=== PATIENT | male | born 1935 | race Caucasian/White ===

== ENCOUNTER 2017-12-05 06:22 | Emergency (ER) | payer MEDICARE, SELFPAY ==
[2017-12-05 06:31] VITALS: BP 157/89; PULSE 70; RESP 18; TEMP 36.7; O2SAT 99
--- NOTE | 2017-12-05 06:34 | DI.RAD.S_ITS ---
PROCEDURE: XR CHEST 1V INDICATIONS: chest pressure TECHNIQUE: One view of the chest was acquired. COMPARISON: [facility], CHEST 2 VIEW, 03/10/2016, 17:04. [facility], CHEST 1 VIEW, 08/04/2015, 9:12. FINDINGS: Surgical changes and devices: None. Lungs and pleura: No pleural effusions or pneumothorax. Lungs are clear. Mediastinum: Mediastinal contours appear normal. Heart size is normal. Bones and chest wall: No suspicious bony lesions. Overlying soft tissues appear unremarkable. IMPRESSION: Normal for age, source of current symptoms is not seen. Dictated by: Cem Askew M.D. on 12/05/2017 at 9:05 Approved by: Cem Askew M.D. on 12/05/2017 at 9:05
[2017-12-05] MEDS: ASPIRIN 81 MG TAB 324 MG PO (06:49)
[2017-12-05] MEDS: SODIUM CHLORIDE 0.9% 1,000 ML 150 ML IV (06:49)
[2017-12-05 06:51] LABS: Add Manual Diff / Slide Review NO; Basophils Percent Auto 0.5 % (0-2); Eosinophils Percent Auto 0.4 % (2-4); Hematocrit 42.6 % (41-53); Hemoglobin 14.5 g/dL (13.5-17.5); Lymphocytes Percent Auto 12.9 % (25-40); Mean Corpuscular Volume 96.9 fL (80-100); Monocytes Percent Auto 8.3 % (3-14); Neutrophils Absolute Auto 8900 /uL (3000-5900); Neutrophils Percent Auto 77.9 % (50-75); Platelet Count 183 X10^3/uL (150-400); Red Blood Cell Count 4.39 X10^6/uL (4.5-5.9); Red Cell Distribution Width 13.9 % (11.6-14.8); White Blood Cell Count 11.4 X10^3/uL (4.5-11.0)
[2017-12-05 07:00] LABS: Alanine Aminotransferase 31 IU/L (21-72); Albumin 4.5 g/dL (3.5-5.0); Albumin Globulin Ratio 1.5 (1.0-2.8); Alkaline Phosphatase 87 U/L (38-126); Aspartate Aminotransferase 37 IU/L (17-59); Bilirubin Total 1.3 mg/dL (0.2-1.3); Blood Urea Nitrogen 25 mg/dL (9-20); Calcium 9.3 mg/dL (8.4-10.2); Carbon Dioxide 32 mmol/L (22-32); Chloride 102 mmol/L (98-107); Creatine Kinase 300 U/L (55-170); Estimated Glomerular Filt Rate > 60.0 mL/min (>60); Glucose 113 mg/dL (80-110); HEMOLYSIS < 15 (0-50); Lipase 343 U/L (23-300); Sodium 143 mmol/L (137-145); Total Protein 7.5 g/dL (6.3-8.2)
[2017-12-05 07:11] LABS: Troponin I 0.021 ng/mL (0.01-0.034)
[2017-12-05 07:15] LABS: Creatine Kinase MB 2.87 ng/mL (<2.37)
--- NOTE | 2017-12-05 07:31 | ED.CHESTPAIN ---
HPI - Chest Pain General Chief Complaint: Chest Pain Stated Complaint: states, chest pain, high Blood Pressure Time Seen by Provider: 12/05/17 06:34 Source: patient and family Mode of arrival: ambulatory Limitations: no limitations History of Present Illness HPI narrative: Patient states that around midnight, he noticed substernal chest pain. The pain did not radiate, and was not accompanied by nausea, shortness of breath, diaphoresis, dizziness, or a sense of impending doom. He states that it was like pins and needles. Patient states that he did not think too much of it at the time and went back to sleep, but when he woke up, he noticed that the pain had spread to both sides of his chest. He states that the intensity is about the same as it was when it 1st started. Patient states it hurts more when he takes deep breath. He denies recent respiratory symptoms such as cough or mucus production. No fevers. Patient denies any calf pain. He states that otherwise he is feeling well. He states he has had several stress tests, but it has been many years ago. He states that his mother had a very small GA which was diagnosed on a preop EKG sometime after the fact. He states that otherwise, there are no heart problems in his family except for an uncle with AFib. Patient has hypertension and hyperlipidemia, but has never been a smoker, and is not a diabetic. No other complaints at this time. Severity: mild Severity scale (1-10): 3 Related Data Home Medications Medication Instructions Recorded Confirmed CA PANTOTHENATE/FOLIC ACID/VIT 1 tab PO QDAY #0 09/09/10 (MULTIVITAMIN) CALCIUM CITRATE (CITRACAL ) 200 mg PO QDAY #0 03/09/12 aspirin 81 mg PO QDAY #0 03/09/12 [omega ] PO BID #0 05/20/12 Previous Rx's Medication Instructions Recorded amoxicillin-pot clavulanate 500 mg PO Q12H #14 tab 03/09/16 [Augmentin] prednisone 0 PO QDAY #7 tab 03/09/16 doxycycline monohydrate 100 mg PO Q12H #20 cap 03/10/16 ondansetron HCl [Zofran] 4 mg PO Q6HP PRN #10 tab 03/10/16 tramadol 1 tab PO Q6HP PRN #10 tab 03/10/16 Allergies Allergy/AdvReac Type Severity Reaction Status Date / Time egg Allergy Unknown Unverified 12/05/17 06:31 lactose Allergy Unknown INTOLERANT Verified 12/05/17 06:31 Review of Systems Review of Systems All systems reviewed & are unremarkable except as noted in HPI and below Constitutional Denies chills, Denies fever(s), Denies lethargy and Denies weakness Eyes Denies change in vision, Denies eye discharge, Denies irritation and Denies loss of vision ENT Ears, Nose, Mouth, and Throat: Denies change in voice, Denies neck pain and Denies sore throat Cardiovascular Reports chest pain, Denies irregular heart rhythm, Denies lightheadedness, Denies palpitations, Denies dyspnea, Denies dyspnea on exertion and Denies orthopnea Respiratory Denies cough, Denies dyspnea, Denies dyspnea on exertion and Denies wheezing Gastrointestinal Gastrointestinal: Denies abdominal pain, Denies change in bowel habits, Denies diarrhea, Denies nausea and Denies vomiting Genitourinary Denies hematuria, Denies flank pain, Denies urinary incontinence and Denies urinary urgency Musculoskeletal Denies neck pain Integumentary/Breasts Denies pruritus, Denies erythema, Denies rash and Denies wounds Neurologic Denies confusion, Denies loss of vision and Denies weakness Psychiatric Denies anxiety, Denies confusion, Denies depression, Denies homicidal ideation and Denies suicidal ideation Endocrine Denies palpitations Hematologic/Lymphatic Denies easy bruising Allergic/Immunologic Denies wheezing [facility] Medical History Hyperlipidemia (Acute) Hypertension, essential (Acute) Surgical History Status post colonoscopy Family History Brother Parkinsons disease Social History Smoking Status: Never smoker Exam Initial Vital Signs Initial Vital Signs: Vital Signs Temperature 98.0 F 12/05/17 06:31 Pulse Rate 70 12/05/17 06:31 Respiratory Rate 18 12/05/17 06:31 Blood Pressure 157/89 H 12/05/17 06:31 Pulse Oximetry 99 12/05/17 06:31 Const General: cooperative and well developed Nutritional Appearance: well nourished Orientation: alert, awake, oriented x3 and not confused [facility] Head: normocephalic and atraumatic Ears: external ears normal Nose: external nose normal and No nasal discharge Face and sinus: face symmetric and No dry mucous membranes Mouth: oral mucosae normal and moist mucous membranes Teeth and gingiva: dentition normal Eyes General: appearance normal, both eyes and all related structures Eyelids: eyelids normal Conjunctivae: conjunctivae normal Sclera: sclerae normal Pupils: PERRL EOM: EOM intact bilaterally Neck Neck: normal visual inspection, trachea midline, No lymphadenopathy, No midline deformity and No JVD Lymphatic: No lymphedema Chest Chest: normal inspection of the chest Resp Effort & Inspection: normal respiratory effort, able to speak in complete sentences, no respiratory distress and no use of accessory muscles Auscultation: clear to auscultation bilaterally, no rales, no rhonchi and no wheezes Cardio Rate: regular rate Rhythm: regular rhythm Heart Sounds: no click, no gallops, no murmurs and no rubs Pulses: normal peripheral pulses GI Inspection: non-distended Palpation: soft, no hepatosplenomegaly, No guarding, No pulsatile mass and No tender Back/Spine/Pelvis Back: No CVA tenderness Cervical Spine: cervical ROM normal and No pain with cervical ROM Thoracic/Lumbar Spine: thoracic and lumbar spine normal to inspection Skin General: no rashes or lesions noted, No jaundice and No petechiae Neuro General: alert, oriented x3, gait normal and no focal motor deficits Speech: speech normal Extrem General: full ROM, no clubbing, cyanosis or edema, no pedal edema and no calf tenderness Psych Appearance: well kempt Mental Status: mental status grossly normal Attitude: cooperative Thought Content: normal and suicidality Judgment: judgment good Course Course Narrative: patient was evaluated by myself in the emergency department, and worked up with labs, EKG, and chest x-ray. Workup was unremarkable other than the EKG showing atrial flutter, which the patient had not previously been aware of, and a slightly elevated lipase, the significance of which is unclear. Patient's troponin and CK-MB index were both within normal limits. I did feel that, given the amount of time that had elapsed between the onset of chest pain and the patient's presentation to the emergency department, 1 set of cardiac enzymes was sufficient. Additionally, this patient has features more consistent with a chest wall source then with a visceral source, considering the change with deep breaths. As such, I felt patient was stable for discharge home. We have discussed the patient's a flutter, which patient has not previously been aware of. I have advised him to follow up with his primary care physician to discuss whether he needs to have another stress test done, or further evaluation for his atrial flutter. Orders Ordered: Discontinued Medications Aspirin (Aspirin Chew) 324 mg PO NOW ONE Stop: 12/05/17 06:35 Last Admin: 12/05/17 06:49 Dose: 324 mg Aspirin (Aspirin Chew) 324 mg PO NOW ONE Stop: 12/05/17 06:35 Last Admin: 12/05/17 06:49 Dose: Not Given Sodium Chloride (Normal Saline 0.9%) 1,000 mls @ 150 mls/hr IV CONT PANCHO Last Infusion: 12/05/17 09:21 Dose: 150 mls/hr Admin: 12/05/17 06:49 Dose: 150 mls/hr Vital Signs - 8 hr 12/05/17 06:31 Temperature 98.0 F Pulse Rate 70 Respiratory Rate 18 Blood Pressure 157/89 H Pulse Oximetry 99 MDM - Chest Pain Medical Records Data Attestation: I reviewed the patient's medical records. Lab Data Attestation: I reviewed the patient's lab results. Result diagrams: 12/05/17 06:30 12/05/17 06:30 Lab Results 12/05/17 12/05/17 Range/Units 06:30 06:30 WBC 11.4 H (4.5-11.0) X10^3/uL RBC 4.39 L (4.5-5.9) X10^6/uL Hgb 14.5 (13.5-17.5) g/dL Hct 42.6 (41-53) % MCV 96.9 (80-100) fL MCH 33.0 (26-34) PG MCHC 34.0 (30-36) % RDW 13.9 (11.6-14.8) % Plt Count 183 (150-400) X10^3/uL Neut % (Auto) 77.9 H (50-75) % Lymph % (Auto) 12.9 L (25-40) % [place] % (Auto) 8.3 (3-14) % Eos % (Auto) 0.4 L (2-4) % Baso % (Auto) 0.5 (0-2) % Neut # (Auto) 8900 H (3966-1696) /uL Sodium 143 (137-145) mmol/L Potassium 4.0 (3.4-5.1) mmol/L Chloride 102 (98-107) mmol/L Carbon Dioxide 32 (22-32) mmol/L BUN 25 H (9-20) mg/dL Creatinine 1.00 (0.66-1.25) mg/dL Estimated GFR > 60.0 (>60) mL/min BUN/Creatinine Ratio 25.0 H (6-22) Glucose 113 H (80-110) mg/dL Calcium 9.3 (8.4-10.2) mg/dL Total Bilirubin 1.3 (0.2-1.3) mg/dL AST 37 (17-59) IU/L ALT 31 (21-72) IU/L Alkaline Phosphatase 87 (38-126) U/L Total Creatine Kinase 300 H (55-170) U/L CK-MB (CK-2) 2.87 H (<2.37) ng/mL CK-MB (CK-2) Rel Index 1.0 L (1.5-5.0) % Troponin I 0.021 (0.01-0.034) ng/mL Total Protein 7.5 (6.3-8.2) g/dL Albumin 4.5 (3.5-5.0) g/dL Globulin 3.0 (1.7-4.1) g/dL Albumin/Globulin Ratio 1.5 (1.0-2.8) Lipase 343 H (23-300) U/L Urine Dip Bedside Urine Glucose Negative Bedside Urine Bilirubin - Negative Bedside Urine Ketone - Negative Urine Specific [place] 1.010 Bedside Urine Occult Blood - Negative Bedside Urine pH 7.5 Bedside Urine Protein - Negative Bedside Urine Urobilinogen - Negative Bedside Urine Nitrite - Negative Bedside Urine Leukocytes - Negative Esterase Imaging Data Chest x-ray: Attestation: I personally reviewed and interpreted this imaging study as follows: My impression: Negative Radiologist's impression: PROCEDURE: XR CHEST 1V INDICATIONS: chest pressure TECHNIQUE: One view of the chest was acquired. COMPARISON: [facility], , CHEST 2 VIEW, 03/10/2016, 17:04. [facility], , CHEST 1 VIEW, 08/04/2015, 9:12. FINDINGS: Surgical changes and devices: None. Lungs and pleura: No pleural effusions or pneumothorax. Lungs are clear. Mediastinum: Mediastinal contours appear normal. Heart size is normal. Bones and chest wall: No suspicious bony lesions. Overlying soft tissues appear unremarkable. IMPRESSION: Normal for age, source of current symptoms is not seen. Dictated by: Cem Askew M.D. on 12/05/2017 at 9:05 Approved by: Cem Askew M.D. on 12/05/2017 at 9:05 ECG Data Attestation: I personally reviewed and interpreted this ECG as follows: Interpretation: Twelve lead EKG performed on December 05, 2017 at 6:29 a.m.: Regular ventricular rhythm with a rate of 94 beats per minute Saw tooth baseline noted, without distinct P-waves QRS duration 88 milliseconds QTC interval 418 milliseconds Summary: Atrial flutter with normal rate; no STEMI as interpreted by ED MD. Discharge Plan Departure Patient Disposition: Home Clinical Impression: Chest pain, Atrial flutter Discharge Date/Time: 12/05/17 09:37 Interventions: ED Discharge Assessment Last Done: 12/05/17 09:35 Instructions: DI for Atrial Flutter, DI for Chest Pain Activity Restrictions/Additional Instructions: Your labs showed no evidence of a heart attack. Your chest x-ray looks good. Your EKG shows a mild rhythm abnormality (atrial flutter--see instructions) but otherwise looks great. Please follow-up with your primary doctor regarding the chest pain and the new diagnosis of atrial flutter. Prescriptions: No Action CA PANTOTHENATE/FOLIC ACID/VIT (MULTIVITAMIN) 1 tab PO QDAY Qty: 0 RF: 0 aspirin 81 MG tablet,delayed release (DR/EC) 81 mg PO QDAY Qty: 0 RF: 0 CALCIUM CITRATE (CITRACAL ) 200 mg PO QDAY Qty: 0 RF: 0 [omega ] PO BID Qty: 0 RF: 0 prednisone 20 MG tablet PO QDAY Qty: 7 RF: 0 amoxicillin-pot clavulanate [Augmentin] 500 MG/125 MG tablet 500 mg PO Q12H Qty: 14 RF: 0 ondansetron HCl [Zofran] 4 MG tablet 4 mg PO Q6HP PRNQty: 10 RF: 0 tramadol 50 MG tablet 1 tab PO Q6HP PRNQty: 10 RF: 0 doxycycline monohydrate 100 MG capsule 100 mg PO Q12H Qty: 20 RF: 0 Referrals: Delon Judd MD [Primary Care Provider] -
[2017-12-05 09:35] VITALS: BP 129/80; PULSE 78; RESP 24; O2SAT 96
== END 2017-12-05 09:37 | disposition home or self-care (01) ==
PROVIDERS: Emergency Medicine; Emergency Provider Emergency Medicine; PCP Family Medicine
DX: I48.92 Unspecified atrial flutter (principal); R07.89 Other chest pain
CPT/HCPCS: 36591; 71045; 80053; 81003; 82550; 82553; 83690; 84484; 85025; 93005; 96360; 96361; 99283; 99285

== ENCOUNTER → 2017-12-10 08:21 | Outpatient (CLI) | payer MEDICARE, SELFPAY ==
--- NOTE | 2017-12-10 | DI.ECHO.S_ITS ---
[facility]---------+ [facility] +---------+ : : [address] : : : : [id number] : : : : Phone: [phone] Echocardiogram Report + + :Name: JUAN CARLOS MI Study Date: 12/10/2017 Height: 72 in : :[facility] Weight: 200 lb : : Gender: Male BSA: 2.1 m2 : :: 1935 Age: 82 yrs BP: 130/84 mmHg: :Reason For Study: Atrial fibrillation : : Performed By: Monique Melendez : :Referring: DOMINGUEZ MARTINEZ : + + Interpretation Summary The ejection fraction is estimated to be 60-65%. There is mild tricuspid regurgitation. The right ventricular systolic pressure is estimated to be at least 29 mmHg based on an estimated right atrial pressure of 3 mm Hg. Procedure: A two-dimensional transthoracic echocardiogram with color flow and Doppler was performed. The study quality was technically adequate. There is no prior echocardiogram noted for this patient. The patient was in atrial fibrillation with heart rates between 75-89 bpm during the exam. Left Ventricle: The left ventricle is normal in size, wall thickness, and systolic function without any focal wall motion abnormalities. The ejection fraction is estimated to be 60-65%. Left ventricular wall motion is normal. Diastolic function could not be accurately assessed due to atrial fibrillation. Right Ventricle: The right ventricle grossly appears normal in size with probable normal systolic function. Atria: The left atrium is mildly dilated. Right atrial size is normal. The interatrial septum is intact with no evidence for an atrial septal defect. Mitral Valve: The mitral valve is grossly normal. There is trace mitral regurgitation. Aortic Valve: The aortic valve is trileaflet. The aortic valve is mildly calcified. The aortic valve opens well. No aortic regurgitation is present. Tricuspid Valve: The tricuspid valve leaflets are thin and pliable. There is mild tricuspid regurgitation. The right ventricular systolic pressure is estimated to be at least 29 mmHg based on an estimated right atrial pressure of 3 mm Hg. Pulmonic Valve: The pulmonic valve is not well seen, but is grossly normal. There is mild pulmonic regurgitation. Great Vessels: The aortic root is mildly dilated. The ascending aorta is mildly enlarged. The aortic arch is normal in size. The IVC is of normal diameter and collapses greater than 50% with a sniff. This suggests a low right atrial pressure of 3 mm Hg. Pericardium/ Pleura There is no pericardial effusion. There is no pleural effusion. MMode/2D Measurements & Calculations LVIDd: 4.1 cm Ao root diam: 3.9 cm LVIDs: 2.3 cm Aortic Jxn: 3.1 cm FS: 43.4 % asc Aorta Diam: 3.8 cm EPSS: 0.34 cm Ao Arch Diam (Prox Trans): 2.6 cm IVSd: 0.75 cm LVPWd: 0.81 cm LV underwood. diameter/BSA (cm/m^2): 1.9 LV sys. diameter/BSA (cm/m^2): 1.1 LA dimension: 3.9 cm RA long axis: 4.6 cm LA A2 area: 26.4 cm2 RA area: 19.8 cm2 LA A4 area: 23.3 cm2 RA vol: 73.0 ml LA length (vol): 6.1 cm RA : 34.3 ml/m2 LA vol: 86.1 ml IVC diam: 1.6 cm LA vol index: 40.4 ml/m2 RVDd major: 5.3 cm RVD1 (basal): 3.6 cm RVD2 (mid): 2.6 cm Doppler Measurements & Calculations Ao V2 max: 146.9 cm/sec Med Peak E' Jose: 7.1 cm/sec Ao V2 mean: 101.2 cm/sec Lat Peak E' Jose: 9.5 cm/sec Ao max P.6 mmHg MV P1/2t: 77.3 msec Ao mean P.6 mmHg Ao V2 VTI: 27.5 cm TR max jose: 252.3 cm/sec MV V2 mean: 46.1 cm/sec TR max P.5 mmHg MV mean P.3 mmHg PA V2 max: 72.4 cm/sec MV V2 VTI: 17.9 cm PA V2 mean: 44.6 cm/sec PA mean P.96 mmHg PA Accel Time: 0.11 sec MV P1/2t max jose: 97.4 cm/sec MVA(P1/2t): 2.8 cm2 Reading Physician:04:19 PM
== END ==
PROVIDERS: PCP Family Medicine; Visit Provider Family Medicine
DX: I07.1 Rheumatic tricuspid insufficiency (principal); I48.91 Unspecified atrial fibrillation
CPT/HCPCS: 93306

== ENCOUNTER → 2018-02-04 08:24 | Outpatient (CLI) | payer MEDICARE, SELFPAY ==
--- NOTE | 2018-02-04 09:23 | P.PCN_ITS ---
Cardiac Stress Test Report Referral & Results Date Patient Seen: 02/04/18 Requesting provider: Miranda Dejesus Indication: Atrial fibrillation Rest ECG: Atrial fibrillation with controlled ventricular response Procedure Note: Today following both written and verbal informed consent the patient was exercised according to a standard Shaquille protocol patient went for a total of 6 min 0 sec achieving a maximum heart rate of 160 maximum systolic blood pressure of 180. This is approximately 7.0 METS. Exercise was terminated at this point because of inability the patient to continue because of fatigue and weakness. Patient was also given Cardiolite through a previously started Hep-Lock IV by the nuclear waste management engineer approximately 1 minute prior to the cessation of exercise. Patient was rapidly tachycardic. Blood pressure was somewhat slow to respond but ultimately peak blood pressure was normal. Functional aerobic impairment rated-10% on the active scale so better than average No ST-T segment changes identified Rare PVCs including ventricular couplets were identified Impression: No evidence of ischemia based on usually ECG criteria Ventricular dysrhythmias as above Excellent exercise capacity Perfusion imaging will be reported separately Please note: Actual ECG tracings can be found in the PACS system.
--- NOTE | 2018-02-06 14:35 | DI.NM.S_ITS ---
DATE OF SERVICE: 02/04/2018 PROCEDURE: Pharmacological perfusion study. INDICATION: Persistent atrial fibrillation with underlying hypertension, hyperlipidemia. RADIOPHARMACEUTICAL: 24.5 mCi technetium-99m Myoview IV was injected at stress, and 26.9 mCi technetium-99m Myoview IV was injected at rest. CARDIAC STRESS: Patient underwent exercise perfusion study under the supervision of an attending staff. He walked on Shaquille protocol for 6 minutes 1 second and achieved 114% of target heart rate with normal blood pressure response. There was enhanced chronotropic response. Functional aerobic impairment -10%. Achieved 7 METs of workload. Baseline rhythm was atrial fibrillation with controlled ventricular rate. During stress, there was enhanced chronotropic response. Patient remained in atrial fibrillation. There were no obvious new ischemic changes. Occasional PVCs and ventricular couplets. No ventricular tachycardia. Patient felt fatigued. RAW DATA: There was adequate myocardial uptake. GATED STUDY: Resting LV ejection fraction 74% and stress LV ejection fraction 76%. No obvious wall motion abnormalities. Resting end-diastolic volume 78 mL. Lung/heart ratio 0.35, which is within normal limits. No transient ischemic dilatation. TID ratio is 0.98, which is within normal limits. MYOCARDIAL PERFUSION SCAN: Stress supine, resting supine, and stress prone images were compared to each other. Resting supine images revealed a small- sized, minimally decreased perfusion of inferior wall which got resolved during stress prone as well as stress supine images. I don't see any convincing ischemia infarction pattern. CONCLUSION: 1. I will call this study a normal myocardial perfusion study. No convincing ischemia infarction during stress supine and stress prone images. LV function is preserved. No transient ischemic dilatation. Patient has atrial fibrillation. During exercise, there was enhanced chronotropic response, and maximum heart rate went up to 160 beats per minute. Patient will benefit with better rate control. As far as perfusion scan is concerned, this is a low-risk myocardial infarction scan. Arlette Catracho - EFFICIENCY MINER/fn/kv doc#: [id number]/job#: [id number] dd: 02/06/2018 12:45:00 dt: 02/06/2018 14:25:00 DICTATING MD/COPIES TO: Jonathan Mojica MD COPIES MNE: PALJay Jay
== END ==
PROVIDERS: PCP Family Medicine; Visit Provider Internal Medicine Cardiovascular Disease
DX: I48.1 Persistent atrial fibrillation (principal); I49.3 Ventricular premature depolarization
CPT/HCPCS: 78452; 93016; 93017; 93018; A9502

== ENCOUNTER → 2018-06-10 07:44 | Outpatient (CLI) | payer MEDICARE, SELFPAY ==
[2018-06-10 08:41] LABS: Add Manual Diff / Slide Review NO; Basophils Absolute Auto 0 /uL (0-100); Basophils Percent Auto 0.6 % (0-2); Eosinophils Absolute Auto 100 /uL (0-450); Eosinophils Percent Auto 1.5 % (2-4); Hematocrit 43.2 % (41-53); Hemoglobin 14.2 g/dL (13.5-17.5); Lymphocytes Absolute Auto 2400 /uL (1100-4500); Lymphocytes Percent Auto 32.9 % (25-40); Mean Corpuscular Hemoglobin 32.6 PG (26-34); Mean Corpuscular Volume 98.9 fL (80-100); Monocytes Absolute Auto 500 /uL (0-900); Neutrophils Absolute Auto 4300 /uL (1500-7000); Platelet Count 171 X10^3/uL (150-400); Red Blood Cell Count 4.37 X10^6/uL (4.5-5.9); Red Cell Distribution Width 13.7 % (11.6-14.8); White Blood Cell Count 7.4 X10^3/uL (4.5-11.0)
[2018-06-10 09:28] LABS: Blood Urea Nitrogen 29 mg/dL (9-20); Calcium 9.1 mg/dL (8.4-10.2); Carbon Dioxide 31 mmol/L (22-32); Chloride 101 mmol/L (98-107); Cholesterol 124 mg/dL (140-199); Estimated Glomerular Filt Rate > 60.0 mL/min (>60); Glucose 95 mg/dL (80-110); HDL Cholesterol 39 mg/dL (40-60); HEMOLYSIS < 15 (0-50); LDL Cholesterol Calculated 69 mg/dL (<100); Potassium 4.4 mmol/L (3.4-5.1); Sodium 141 mmol/L (137-145); Triglycerides 82 mg/dL (35-150)
== END ==
PROVIDERS: Family Provider Family Medicine; PCP Family Medicine; Visit Provider Internal Medicine Cardiovascular Disease
DX: E78.5 Hyperlipidemia, unspecified (principal); I10 Essential (primary) hypertension; I48.1 Persistent atrial fibrillation
CPT/HCPCS: 36415; 80048; 80061; 85025

== ENCOUNTER 2018-08-09 04:53 | Emergency (ER) | payer MEDICARE, SELFPAY ==
--- NOTE | 2018-08-09 05:02 | ED.EPISTAXIS ---
HPI - Epistaxis General Chief complaint: Nasal Problem Stated complaint: nose bleeding x1 hour no injury Time Seen by Provider: 08/09/18 05:02 Source: patient Mode of arrival: ambulatory Limitations: no limitations History of Present Illness HPI Narrative: Patient is an 82-year-old male on Eliquis for atrial fibrillation here for evaluation of a nosebleed. Patient states that it started approximately 1 hour ago. No trauma. Related Data Home Medications Medication Instructions Recorded Confirmed CA PANTOTHENATE/FOLIC ACID/VIT 1 tab PO QDAY #0 09/09/10 03/13/18 (MULTIVITAMIN) CALCIUM CITRATE (CITRACAL ) 200 mg PO QDAY #0 03/09/12 03/13/18 aspirin 81 mg PO QDAY #0 03/09/12 03/13/18 [omega ] PO BID #0 05/20/12 03/13/18 apixaban 5 mg tablet 5 mg PO BID 03/13/18 03/13/18 duloxetine 30 mg capsule,delayed 30 mg PO DAILY 03/13/18 03/13/18 release lisinopril 20 mg tablet 20 mg PO DAILY 03/13/18 03/13/18 omeprazole 20 mg capsule,delayed 20 mg PO DAILY 03/13/18 03/13/18 release simvastatin 20 mg/5 mL (4 mg/mL) 20 mg PO BEDTIME 03/13/18 03/13/18 oral suspension Previous Rx's Medication Instructions Recorded amoxicillin-pot clavulanate 500 mg PO Q12H #14 tab 03/09/16 [Augmentin] prednisone 0 PO QDAY #7 tab 03/09/16 doxycycline monohydrate 100 mg PO Q12H #20 cap 03/10/16 ondansetron HCl [Zofran] 4 mg PO Q6HP PRN #10 tab 03/10/16 tramadol 1 tab PO Q6HP PRN #10 tab 03/10/16 Allergies Allergy/AdvReac Type Severity Reaction Status Date / Time egg Allergy Unknown Unverified 03/13/18 14:38 lactose Allergy Unknown INTOLERANT Verified 03/13/18 14:38 Review of Systems Constitutional Denies fever(s) ENT Ears, Nose, Mouth, and Throat: Reports epistaxis Cardiovascular Denies chest pain and Denies dyspnea Respiratory Denies dyspnea Integumentary/Breasts Denies rash Hematologic/Lymphatic Comments: On Eliquis [facility] Medical History Hyperlipidemia (Acute) Hypertension, essential (Acute) Social History Smoking Status: Never smoker Exam Initial Vital Signs Initial Vital Signs: Vital Signs Temperature 97.5 F L 08/09/18 05:10 Pulse Rate 68 08/09/18 05:10 Respiratory Rate 18 08/09/18 05:10 Blood Pressure 190/107 H 08/09/18 05:10 Pulse Oximetry 97 08/09/18 05:10 Const General: cooperative, well developed, well groomed and No acute distress Orientation: alert, awake and oriented x3 HENMT Head: normal to inspection and normocephalic Nose: external nose normal, nares normal, septum normal, No epistaxis, external nose abnormal, No nasal discharge and No septum abnormal Face and sinus: normal facial exam Resp Effort & Inspection: normal respiratory effort Skin Lesions: no lesions Rashes: no rashes Neuro General: alert, awake and oriented x3 Cognition: normal cognition Speech: speech normal Extrem General: normal to inspection and capillary refill normal Course Vital Signs - 8 hr 08/09/18 05:10 Temperature 97.5 F L Pulse Rate 68 Respiratory Rate 18 Blood Pressure 190/107 H Pulse Oximetry 97 MDM - Epistaxis MDM Narrative Medical decision making narrative: Patient was observed here in the emergency department for approximately 30 minutes without any bleeding and without any compression. We did discuss return precautions. We did discuss what he could do at home to try to try at home to help with symptoms. Patient expressed understanding and agreement with plan. Discharge Plan Departure Patient Disposition: Home Clinical Impression: Epistaxis Instructions: DI for Nosebleed Activity Restrictions/Additional Instructions: Recommend you continue all of your medication as directed. If your nose starts to bleed at home treat it like we discussed. If the bleeding persists please return to the emergency department for further evaluation. Prescriptions: No Action CA PANTOTHENATE/FOLIC ACID/VIT (MULTIVITAMIN) 1 tab PO QDAY Qty: 0 RF: 0 aspirin 81 MG tablet,delayed release (DR/EC) 81 mg PO QDAY Qty: 0 RF: 0 CALCIUM CITRATE (CITRACAL ) 200 mg PO QDAY Qty: 0 RF: 0 [omega ] PO BID Qty: 0 RF: 0 prednisone 20 MG tablet PO QDAY Qty: 7 RF: 0 amoxicillin-pot clavulanate [Augmentin] 500 MG/125 MG tablet 500 mg PO Q12H Qty: 14 RF: 0 ondansetron HCl [Zofran] 4 MG tablet 4 mg PO Q6HP PRNQty: 10 RF: 0 tramadol 50 MG tablet 1 tab PO Q6HP PRNQty: 10 RF: 0 doxycycline monohydrate 100 MG capsule 100 mg PO Q12H Qty: 20 RF: 0 duloxetine 30 mg capsule,delayed release(DR/EC) 30 mg PO DAILY RF: 0 simvastatin 20 mg/5 mL (4 mg/mL) suspension 20 mg PO BEDTIME RF: 0 lisinopril 20 mg tablet 20 mg PO DAILY RF: 0 apixaban [Eliquis] 5 mg tablet 5 mg PO BID RF: 0 omeprazole 20 mg capsule,delayed release(DR/EC) 20 mg PO DAILY RF: 0 Referrals: Delon Judd MD [Primary Care Provider] -
[2018-08-09 05:10] VITALS: BP 190/107; PULSE 68; RESP 18; TEMP 36.4; O2SAT 97; BMI 25.7
--- NOTE | 2018-08-09 05:14 | PC.NURSE ---
He awoke with left nare nosebleed.He applied pressure to nasal arch and his nose bleed has stopped,no bleeding noted in back of throat.Some dried blood on left nare.
[2018-08-09 05:48] VITALS: BP 160/90; PULSE 64; RESP 18; O2SAT 98
== END 2018-08-09 05:49 | disposition home or self-care (01) ==
PROVIDERS: Emergency Provider Emergency Medicine; Family Provider Family Medicine; PCP Family Medicine
DX: R04.0 Epistaxis (principal)
CPT/HCPCS: 99282

== ENCOUNTER → 2018-08-15 10:21 | Outpatient (ROUT) | payer MEDICARE, SELFPAY ==
[2018-08-15 10:28] LABS: Add Manual Diff / Slide Review NO; Basophils Absolute Auto 0 /uL (0-100); Basophils Percent Auto 0.5 % (0-2); Eosinophils Absolute Auto 100 /uL (0-450); Hematocrit 42.8 % (41-53); Hemoglobin 14.5 g/dL (13.5-17.5); Lymphocytes Absolute Auto 2000 /uL (1100-4500); Lymphocytes Percent Auto 27.1 % (25-40); Mean Corpuscular Hemoglobin 33.7 PG (26-34); Monocytes Absolute Auto 500 /uL (0-900); Monocytes Percent Auto 7.2 % (3-14); Neutrophils Absolute Auto 4700 /uL (1500-7000); Neutrophils Percent Auto 64.2 % (50-75); Platelet Count 175 X10^3/uL (150-400); Red Blood Cell Count 4.32 X10^6/uL (4.5-5.9); Red Cell Distribution Width 13.8 % (11.6-14.8); White Blood Cell Count 7.4 X10^3/uL (4.5-11.0)
[2018-08-15 10:35] LABS: INR 1.2 (0.9-1.3); Prothrombin Time 14.3 SECONDS (10.1-12.7)
[2018-08-15 10:41] LABS: Blood Urea Nitrogen 27 mg/dL (9-20); Calcium 9.2 mg/dL (8.4-10.2); Carbon Dioxide 31 mmol/L (22-32); Chloride 104 mmol/L (98-107); Estimated Glomerular Filt Rate > 60.0 mL/min (>60); Glucose 106 mg/dL (80-110); HEMOLYSIS < 15 (0-50); Potassium 4.1 mmol/L (3.4-5.1); Sodium 141 mmol/L (137-145)
== END ==
PROVIDERS: Family Provider Family Medicine; PCP Family Medicine; Visit Provider Family Medicine
DX: Z79.01 Long term (current) use of anticoagulants (principal); R04.0 Epistaxis
CPT/HCPCS: 80048; 85025; 85610

== ENCOUNTER → 2019-06-11 09:40 | Outpatient (CLI) | payer MEDICARE, SELFPAY ==
[2019-06-11 10:39] LABS: Add Manual Diff / Slide Review NO; Basophils Absolute Auto 0 /uL (0-100); Basophils Percent Auto 0.6 % (0-2); Eosinophils Absolute Auto 100 /uL (0-450); Eosinophils Percent Auto 1.8 % (2-4); Hematocrit 44.6 % (41-53); Lymphocytes Absolute Auto 2300 /uL (1100-4500); Lymphocytes Percent Auto 33.7 % (25-40); Mean Corpuscular HGB Conc 33.6 % (30-36); Mean Corpuscular Hemoglobin 33.7 PG (26-34); Mean Corpuscular Volume 100.2 fL (80-100); Monocytes Absolute Auto 500 /uL (0-900); Monocytes Percent Auto 7.6 % (3-14); Neutrophils Absolute Auto 3900 /uL (1500-7000); Neutrophils Percent Auto 56.3 % (50-75); Platelet Count 183 X10^3/uL (150-400); Red Blood Cell Count 4.45 X10^6/uL (4.5-5.9); Red Cell Distribution Width 13.2 % (11.6-14.8); White Blood Cell Count 6.9 X10^3/uL (4.5-11.0)
[2019-06-11 11:17] LABS: BUN Creatinine Ratio 21.5 (6-22); Blood Urea Nitrogen 23 mg/dL (9-20); Calcium 9.4 mg/dL (8.4-10.2); Carbon Dioxide 32 mmol/L (22-32); Chloride 102 mmol/L (98-107); Estimated Glomerular Filt Rate > 60.0 mL/min (>60); Glucose 95 mg/dL (80-110); HEMOLYSIS < 15 (0-50); Potassium 4.4 mmol/L (3.4-5.1); Sodium 140 mmol/L (137-145)
== END ==
PROVIDERS: Family Provider Family Medicine; PCP Family Medicine; Referring Provider Internal Medicine Cardiovascular Disease; Visit Provider Internal Medicine Cardiovascular Disease
DX: I10 Essential (primary) hypertension (principal); Z79.01 Long term (current) use of anticoagulants
CPT/HCPCS: 36415; 80048; 85025

== ENCOUNTER 2019-07-06 12:41 | Emergency (ER) | payer MEDICARE, SELFPAY ==
[2019-07-06 12:49] VITALS: BP 162/109; PULSE 82; RESP 12; TEMP 36.4; O2SAT 97; BMI 25.7
--- NOTE | 2019-07-06 12:51 | ED_ITS ---
HPI - Epistaxis General Chief complaint: Nasal Problem Stated complaint: nose bleed for a couple hours now wont stop Time Seen by Provider: 07/06/19 12:49 Source: patient and family () Mode of arrival: Ambulatory Limitations: no limitations History of Present Illness HPI Narrative: This is an 83-year-old male who comes to the emergency department with complaint of nose bleed. Patient states he has had almost 3 hours of symptoms. He states that he did have an episode in the past. This was shortly after he had started Eliquis. He states that he does use a CPAP at night but he increased his humidity after having epistaxis in the past and he did have his metoprolol stopped recently by his remote broadcast technician because his heart rate was little low. So he believes his blood pressure may be high. He states is from the left side of the nose. They were able to stop it last time he was in the emergency department he did follow-up with ENT and there was 1 small area they thought was causing the bleeding that they did cauterize. He has not had any issues since then. He denies any lightheadedness, no pain, he has some mild rapid down the back of his throat but does not feel nauseated. He denies any chest pain or shortness of breath or other symptoms. He has not had any other medication changes. He had a nasal clamp at that he left on for about half an hour and when removed continued to have some bleeding. Related Data Home Medications Medication Instructions Recorded Confirmed CA PANTOTHENATE/FOLIC ACID/VIT 1 tab PO QDAY #0 09/09/10 09/11/18 (MULTIVITAMIN) [omega ] PO BID #0 05/20/12 09/11/18 apixaban 5 mg tablet 5 mg PO BID 03/13/18 07/06/19 duloxetine 30 mg capsule,delayed 30 mg PO DAILY 03/13/18 07/06/19 release lisinopril 20 mg tablet 20 mg PO DAILY 03/13/18 07/06/19 simvastatin 20 mg/5 mL (4 mg/mL) 20 mg PO BEDTIME 03/13/18 07/06/19 oral suspension apixaban 5 mg tablet 5 mg PO BID 09/11/18 09/11/18 Allergies Allergy/AdvReac Type Severity Reaction Status Date / Time egg Allergy Unknown Unverified 07/06/19 12:51 lactose Allergy Unknown INTOLERANT Verified 07/06/19 12:51 Review of Systems Review of Systems ROS Unobtainable: All systems reviewed & are unremarkable except as noted in HPI and below Patient History Medical History Atrial fibrillation and flutter (Acute) Epistaxis, recurrent (Acute) Fatigue (Chronic) Hyperlipidemia (Chronic) Hypertension, essential (Chronic) Neuropathy, peripheral (Chronic) Obstructive sleep apnea of adult (Chronic) Surgical History Status post colonoscopy (Resolved) Social History Smoking Status: Never smoker Smoking Status: Never smoker alcohol intake frequency: 0-2 drinks per day Substance Use Type: does not use Exam Narrative Exam Narrative: GEN: well nourished, well appearing male, alert and oriented x 3, patient appears to be in mild distress. HEENT: Atraumatic, pupils are equal round reactive to light, extraocular movements are intact, right nares clear left Frias has a small point on the septum that appears to have been bleeding although there is also an area the little larger on the outer inside there that may potentially be a source, there is no active bleeding at this time, TMs are clear with no fluid. Throat is clear without any exudates, erythema, tonsillar enlargement or uvular deviation HEART: Regular rate and rhythm without murmur, clicks, rubs. LUNGS:Lungs clear to auscultation, no wheezes, rales, crackles, chest moves symmetrically ABD:bowel sounds normal, soft, non-tender, no guarding, rebound, rigidity, no masses noted, no hepatosplenomegaly MSCL: Non-tender, no muscle atrophy, muscles strength 5/5 upper and lower extremities, full range of motion, normal gait NEURO:CN 2-12 intact, sensation normal. SKIN: Initial Vital Signs Initial Vital Signs: Vital Signs Temperature 97.5 F L 07/06/19 12:49 Pulse Rate 82 07/06/19 12:49 Respiratory Rate 12 07/06/19 12:49 Blood Pressure 162/109 H 07/06/19 12:49 Pulse Oximetry 97 07/06/19 12:49 Procedures Epistaxis Control Time Out Performed: Yes Nostril: left Nose Prepped With: lidocaine and oxymetazoline Direct Inspection: yes and unable to visualize Course Orders Ordered: Discontinued Medications Lidocaine/Sodium Bicarbonate (Buffered Lidocaine 10 Ml Syr) 10 ml INJ NOW ONE Stop: 07/06/19 12:54 Oxymetazoline HCl (Afrin) 1 sprays NASAL NOW ONE Stop: 07/06/19 12:54 Silver Nitrate/Potassium Nitrate (Silver Nitrate Stick) 1 each TOP NOW ONE Stop: 07/06/19 13:02 Last Admin: 07/06/19 14:05 Dose: Not Given Documented by: MEISENAzalia Tranexamic Acid (Cyklokapron) 500 mg MM NOW ONE Stop: 07/06/19 12:54 Last Admin: 07/06/19 14:04 Dose: Not Given Documented by: MERRICK Vital Signs Vital signs: Vital Signs - 8 hr 07/06/19 12:49 07/06/19 13:54 Temperature 97.5 F L Pulse Rate 82 71 Respiratory Rate 12 Blood Pressure 162/109 H Blood Pressure [Left Arm] 159/102 H Pulse Oximetry 97 97 MDM - Epistaxis MDM Narrative Medical decision making narrative: On check patient had nasal clamp removed, no active bleeding, two potential spots are noted but are not activitly bleeding. Afrin was sprayed inside and observatino for 40 minutes without any bleeding. Discussed anticipatory guidance. Patient repeat BP is still elevated in diastolic, pulse is in the 70s. Patient will obtain a new blood pressure cuff so he can monitor at home and if he continues to have elevated blood pressures asked him to call his remote broadcast technician to see if they would like to restart him on a low-dose metoprolol like he was before or a different medication. Patient was given Afrin that was used here in the department as well as an additional nasal clamp. He has seen ENT in the past he does remember exactly who he saw so was given referral if needed. Patient feels comfortable with the plan. Discharge Plan Departure Patient Disposition: Home Clinical Impression: Epistaxis Instructions: DI for Nosebleed Activity Restrictions/Additional Instructions: Follow-up with the ENT specialist provided. Follow directions as noted below. Return to emergency department if self-care directions do not work and urine able to stop the bleeding, or if you become lightheaded, began vomiting. Use medications as directed, use afrin 1-2 sprays on affected side. Talked to your remote broadcast technician about restarting your metoprolol if your blood pressure continues to be elevated at home. Nosebleed self-care - With the right self-care, most nosebleeds stop on their own. Here's what you should do: 1. Blow your nose. This might increase the bleeding for a moment, but that's OK. 2. Sit or stand while bending forward a little at the waist. DO NOT lie down or tilt your head back. 3. Pinch the soft area towards the bottom of your nose, below the bone (picture 1). DO NOT manager visual the bridge of your nose between your eyes. That will not work. DO NOT press on just 1 side, even if the bleeding is only on 1 side. That will not work either. 4. Squeeze your nose shut for at least 15 minutes. (In children, squeeze for only 5 minutes.) Use a clock to time yourself. Do not release the pressure before the time is up to check if the bleeding has stopped. If you keep checking, you will ruin your chances of getting the bleeding to stop. If you follow these steps, and your nose keeps bleeding, repeat all the steps once more. Apply pressure for a total of at least 30 minutes (or 10 minutes for children). If you are still bleeding, go to the emergency room or an urgent care clinic. What if I get repeated nosebleeds? - Frequent nosebleeds can be caused by: Breathing dry air all the time Using cold or allergy nasal sprays too much Frequent colds Snorting drugs into your nose, such as cocaine In some cases, repeat nosebleeds can be a sign that your blood does not clot like it should. If that is the case, there are often other clues. For instance, people with clotting problems bruise easily and might bleed more than you would expect after a small cut or scrape. Nosebleed treatment - If you end up seeing a doctor or nurse for your nosebleed, he or she will make sure you can breathe OK. Then he or she will try to get the bleeding to stop. To do that, he or she might have to put a device or some packing material up your nose. What can I do to keep from getting nosebleeds? - You can: Keep using humidified air with your CPAP. Keep the inside of your nose moist with a nasal saline spray or gel Not pick your nose, or at least clip your nails before you do to avoid injury Prescriptions: No Action CA PANTOTHENATE/FOLIC ACID/VIT (MULTIVITAMIN) 1 tab PO QDAY Qty: 0 RF: 0 [omega ] PO BID Qty: 0 RF: 0 duloxetine 30 mg capsule,delayed release(DR/EC) 30 mg PO DAILY RF: 0 simvastatin 20 mg/5 mL (4 mg/mL) suspension 20 mg PO BEDTIME RF: 0 lisinopril 20 mg tablet 20 mg PO DAILY RF: 0 apixaban [Eliquis] 5 mg tablet 5 mg PO BID RF: 0 Eliquis 5 mg tablet 5 mg PO BID RF: 0 Referrals: Real Staton MD [Physician] - Delon Judd MD [Primary Care Provider] -
[2019-07-06 13:54] VITALS: BP 159/102; PULSE 71; O2SAT 97
[2019-07-06] MEDS: OXYMETAZOLINE NASAL SPRAY 30 ML 1 SPRAYS NASAL (14:28)
[2019-07-06] MEDS: LIDO 1%/SOD BICARB 8.4% (10ML) 10 ML SYRINGE INJ (14:29)
== END 2019-07-06 14:07 | disposition home or self-care (01) ==
PROVIDERS: Emergency Provider Emergency Medicine; Family Provider Family Medicine; PCP Family Medicine
DX: R04.0 Epistaxis (principal); Z79.01 Long term (current) use of anticoagulants
CPT/HCPCS: 99282; 99283

== ENCOUNTER → 2020-01-26 09:25 | Outpatient (CLI) | payer MEDICARE, SELFPAY ==
[2020-01-26 10:54] LABS: Add Manual Diff / Slide Review NO; Basophils Absolute Auto 0 /uL (0-100); Basophils Percent Auto 0.6 % (0-2); Eosinophils Absolute Auto 100 /uL (0-450); Eosinophils Percent Auto 1.8 % (2-4); Hematocrit 41.5 % (41-53); Hemoglobin 13.9 g/dL (13.5-17.5); Lymphocytes Absolute Auto 2200 /uL (1100-4500); Lymphocytes Percent Auto 33.8 % (25-40); Mean Corpuscular HGB Conc 33.5 % (30-36); Mean Corpuscular Hemoglobin 33.7 PG (26-34); Mean Corpuscular Volume 100.5 fL (80-100); Monocytes Absolute Auto 500 /uL (0-900); Monocytes Percent Auto 7.5 % (3-14); Neutrophils Absolute Auto 3600 /uL (1500-7000); Neutrophils Percent Auto 56.3 % (50-75); Platelet Count 186 X10^3/uL (150-400); Red Blood Cell Count 4.13 X10^6/uL (4.5-5.9); Red Cell Distribution Width 13.4 % (11.6-14.8); White Blood Cell Count 6.4 X10^3/uL (4.5-11.0)
[2020-01-26 11:28] LABS: BUN Creatinine Ratio 24.3 (6-22); Blood Urea Nitrogen 25 mg/dL (9-20); Carbon Dioxide 35 mmol/L (22-32); Chloride 102 mmol/L (98-107); Cholesterol 136 mg/dL (140-199); Estimated Glomerular Filt Rate > 60.0 mL/min (>60); Glucose 90 mg/dL (80-110); HDL Cholesterol 39 mg/dL (40-60); HEMOLYSIS < 15 (0-50); LDL Cholesterol Calculated 67 mg/dL (<100); Potassium 4.1 mmol/L (3.4-5.1); Sodium 139 mmol/L (137-145); Triglycerides 150 mg/dL (35-150)
== END ==
PROVIDERS: Family Provider Family Medicine; PCP Family Medicine; Referring Provider Internal Medicine Cardiovascular Disease; Visit Provider Internal Medicine Cardiovascular Disease
DX: E78.5 Hyperlipidemia, unspecified (principal); I10 Essential (primary) hypertension; Z79.01 Long term (current) use of anticoagulants
CPT/HCPCS: 36415; 80048; 80061; 85025

== ENCOUNTER → 2020-03-12 11:20 | Outpatient (CLI) | payer MEDICARE, SELFPAY ==
--- NOTE | 2020-03-12 | DI.RAD.S_ITS ---
PROCEDURE: XR LUMBAR SPINE 2-3V INDICATIONS: Dorsalgia, unspecified TECHNIQUE: 3 views of the lumbar spine were acquired. COMPARISON: [facility], , L-SPINE 2-3 VIEWS, 05/08/2014, 16:07. FINDINGS: Bones: No fracture. Multilevel degenerative endplate sclerosis and spurring. Diffuse facet arthropathy. Partially visualized scoliosis. Diffuse mild to moderate narrowing of the lumbar disc spaces. Soft tissues: Overlying bowel gas pattern is normal. No suspicious soft tissue calcifications. IMPRESSION: Diffuse lumbar spondylosis and facet arthropathy, grossly unchanged. Dictated by: Jose Guadalupe Yeboah M.D. on 03/12/2020 at 12:15 Approved by: Jose Guadalupe Yeboah M.D. on 03/12/2020 at 12:17
== END ==
PROVIDERS: Referring Provider Nurse Practitioner Family; Visit Provider Nurse Practitioner Family
DX: M54.9 Dorsalgia, unspecified (principal); M47.816 Spondylosis without myelopathy or radiculopathy, lumbar region
CPT/HCPCS: 72100

== ENCOUNTER → 2020-05-13 06:33 | Outpatient (CLI) | payer MEDICARE, SELFPAY ==
--- NOTE | 2020-05-13 | DI.MRI.S_ITS ---
PROCEDURE: MR LUMBAR SPINE WO CON INDICATIONS: Dorsalgia, unspecified TECHNIQUE: Noncontrast sagittal T1 spin echo and T2 fast echo, sagittal STIR, axial T1 and T2 fast spin echo through the lumbar spine. In cases with scoliosis, additional coronal T2 fast spin echo may be performed. COMPARISON: [facility], , L-SPINE WITHOUT CONTRAST, 12/01/2014, 12:09. FINDINGS: Image quality: Excellent. Alignment and Curvature: There is normal bony alignment. Bone Marrow: Marrow is of normal overall signal. No acute vertebral body compression fractures. Spinal Cord: Conus medullaris terminates at the L1 level. Visualized cord demonstrates normal signal and size. Paraspinous Soft Tissues: No paravertebral masses. Discs: Multilevel [id number] disc desiccation is present. L1-L2: Mild disc bulge without spinal stenosis or foraminal narrowing. Minimal epidural lipomatosis. Facet and ligamentum flavum hypertrophy are present. Minimal interval progression. L2-L3: Minimal disc bulge without spinal stenosis or foraminal narrowing. Minimal epidural lipomatosis. Facet and ligamentum flavum hypertrophy are present. No interval change. Bilateral renal cysts are noted. L3-L4: Minimal disc bulge without spinal stenosis. Minimal left foraminal narrowing. Minimal epidural lipomatosis. Facet and ligamentum flavum hypertrophy are present. Minimal interval progression. L4-L5: Mild disc bulge with minimal canal narrowing. No foraminal narrowing. Minimal epidural lipomatosis. Facet and ligamentum flavum hypertrophy are present. L5-S1: Minimal disc bulge with minimal canal narrowing. Minimal bilateral foraminal narrowing. Facet hypertrophy is present. Stable appearance compared to prior exam. IMPRESSION: 1. Minimal to mild multilevel degenerative changes with minimal interval progression compared to prior exam. Dictated by: Renetta Fay M.D. on 05/13/2020 at 9:42 Approved by: Renetta Fay M.D. on 05/13/2020 at 10:05
== END ==
PROVIDERS: PCP Nurse Practitioner Family; Referring Provider Nurse Practitioner Family; Visit Provider Nurse Practitioner Family
DX: M54.5 Low back pain (principal); M54.9 Dorsalgia, unspecified; M47.816 Spondylosis without myelopathy or radiculopathy, lumbar region
CPT/HCPCS: 72148

== ENCOUNTER → 2020-06-03 08:41 | Outpatient (CLI) | payer MEDICARE, SELFPAY ==
[2020-06-03] MEDS: COVID-19 VACC #1, MRNA(MOD) 100 MCG/0.5 ML VIAL IM (08:47)
== END ==
PROVIDERS: PCP Nurse Practitioner Family; Visit Provider Internal Medicine
DX: Z23 Encounter for immunization (principal)
CPT/HCPCS: 0011A; 91301

== ENCOUNTER → 2020-07-01 08:32 | Outpatient (CLI) | payer MEDICARE, SELFPAY ==
[2020-07-01] MEDS: COVID-19 VACC #2, MRNA(MOD) 100 MCG/0.5 ML VIAL IM (08:37)
== END ==
PROVIDERS: PCP Nurse Practitioner Family; Visit Provider Internal Medicine
DX: Z23 Encounter for immunization (principal)
CPT/HCPCS: 0012A; 91301

== ENCOUNTER → 2021-03-16 10:01 | Outpatient (CLI) | payer MEDICARE, SELFPAY ==
[2021-03-16 13:49] LABS: COVID19 -Nasal RAPID Negative (Negative)
== END ==
PROVIDERS: PCP Nurse Practitioner Family; Visit Provider Nurse Practitioner Family
DX: Z20.822 Contact with and (suspected) exposure to COVID-19 (principal); R05.9 Cough, unspecified
CPT/HCPCS: 87635

== ENCOUNTER → 2022-01-02 10:55 | Outpatient (CLI) | payer MEDICARE, SELFPAY ==
--- NOTE | 2022-01-02 | DI.RAD.S_ITS ---
PROCEDURE: XR TOE RT MIN 2V INDICATIONS: PAINFUL MASS PLANTAR TECHNIQUE: 2 views of the right 2nd toe(s) acquired. COMPARISON: None. FINDINGS: Bones: No acute fracture or dislocation. A bony spur is present off the plantar aspect of the middle phalanx of the right 2nd digit. There is mild interphalangeal joint space narrowing where visualized. No other suspicious bony lesions. Soft tissues: No suspicious soft tissue densities. IMPRESSION: Plantar spur at the base of the right middle phalanx of the 2nd digit. Dictated by: Aicha Tomas M.D. on 01/02/2022 at 14:24 Approved by: Aicha Tomas M.D. on 01/02/2022 at 14:25
== END ==
PROVIDERS: PCP Family Medicine; Referring Provider Podiatrist; Visit Provider Podiatrist
DX: R22.41 Localized swelling, mass and lump, right lower limb (principal)
CPT/HCPCS: 73660

== ENCOUNTER → 2022-02-18 10:57 | Outpatient (CLI) | payer MEDICARE, SELFPAY ==
[2022-02-18 12:01] LABS: Add Manual Diff / Slide Review NO; Basophils Absolute Auto 0 /uL (0-100); Basophils Percent Auto 0.6 % (0-2); Eosinophils Absolute Auto 100 /uL (0-450); Eosinophils Percent Auto 1.5 % (2-4); Hematocrit 42.2 % (41-53); Hemoglobin 14.1 g/dL (13.5-17.5); Lymphocytes Absolute Auto 1900 /uL (1100-4500); Lymphocytes Percent Auto 29.4 % (25-40); Mean Corpuscular HGB Conc 33.5 % (30-36); Mean Corpuscular Volume 98.5 fL (80-100); Monocytes Absolute Auto 600 /uL (0-900); Neutrophils Absolute Auto 3800 /uL (1500-7000); Neutrophils Percent Auto 59.5 % (50-75); Platelet Count 191 X10^3/uL (150-400); Red Blood Cell Count 4.28 X10^6/uL (4.5-5.9); Red Cell Distribution Width 14.1 % (11.6-14.8); White Blood Cell Count 6.4 X10^3/uL (4.5-11.0)
[2022-02-18 12:10] LABS: BUN Creatinine Ratio 19.8 (6-22); Blood Urea Nitrogen 22 mg/dL (9-20); Calcium 8.9 mg/dL (8.4-10.2); Carbon Dioxide 31 mmol/L (22-32); Chloride 100 mmol/L (98-107); Cholesterol 139 mg/dL (140-199); Estimated Glomerular Filt Rate > 60 mL/min (>60); Glucose 91 mg/dL (80-110); HDL Cholesterol 43 mg/dL (40-60); HEMOLYSIS < 15 (0-50); LDL Cholesterol Calculated 66 mg/dL (<100); Potassium 4.5 mmol/L (3.4-5.1); Sodium 139 mmol/L (137-145); Triglycerides 152 mg/dL (35-150)
== END ==
PROVIDERS: Family Provider Family Medicine; PCP Family Medicine; Referring Provider Internal Medicine Cardiovascular Disease; Visit Provider Internal Medicine Cardiovascular Disease
DX: E78.5 Hyperlipidemia, unspecified (principal); Z79.01 Long term (current) use of anticoagulants; I10 Essential (primary) hypertension
CPT/HCPCS: 36415; 80048; 80061; 85025

== ENCOUNTER 2022-04-06 11:30 | Outpatient (RCR) | payer MEDICARE, SELFPAY ==
--- NOTE | 2022-01-19 16:34 | ST.OPIE ---
Visit Care Team Role Provider Type Jaime Bella MD Attending Provider Physician Family Provider Primary Care Provider Referring Provider Specialty: Family Practice Address: [facility] [place], [address] Email: [email or web address] Speech-Language Pathology Initial Evaluation SLEEP MEDICINE PHYSICIAN Voice Resonance Evaluation Start: 01/19/22 13:30 Freq: Status: Active Protocol: Document 01/19/22 15:01 LNK (Rec: 01/19/22 16:34 LNK [id number]) Voice and Resonance Assessment Session Time Visit Start Time 13:31 Visit Stop Time 14:45 Total Visit Minutes 75 Visit Information Visit Number 1 Plan of Care Dates 01/19/22-04/21/21 Next Note Type Next Note Type Treatment Note Referral Referring Physician Dr. Bella Setting Setting Outpatient Care Patient History Patient History Pt was seen for assessment of his voice and swallowing difficulty. Pt reported that over the past 2 years, he has noticed his voice becoming weaker and that he has been having difficulty with swallowing at times. Relative to his voice, the pt stated his friends and family often have difficulty hearing him when he speaks. He also noted that he used to sing in choirs and enjoyed singing, but that he is unable to sing anymore. pt also stated that recently he had a cold with sore throat. He noticed that his voice was what he would consider as normal. After his cold was gone, his normal voice also diminished. With regard to his swallowing, the pt reports a sensation of globus when he swallows foods like breads or meats in the area near his sternum. He also noted that he has a tickle in the back of his throat that will cause him to cough and sometimes choke. This cough can be set off with a small food crumble or when swallowing a small pill. Hearing Hearing Level Hearing Aids Vision Comments wears glasses Oral Motor Assessment Source: [place] [employer] ([facility]). Oral-Motor Eval Completed Informal observation indicated structures and function to be grossly WNL - Laryngeal Performance S/Z Ratio S/Z Ratio .88 Functional for Speech Yes Reduced Laryngeal Function Relative to breathy vocal quality with Respiration increased respiration when speaking CAPE-V Overall Severity 71 Roughness 20 Breathiness 78 Strain 45 Pitch WNL Loudness decreased loudness Normal Resonance? Yes Additional Features Glottal [place],Asthenia,Aphonia, Pitch Instability Other Features Observed overall breathy quality Maximum Phonation Time MPT Norms: Women (15-25) Men (25-35) Loudness (50-60 dB); Speaking Rate: Oral Reading of Sentences (190 Words Per Minute); Oral Reading of Paragraphs (160-170 WPM); Speaking Rate in Conversation (150-250 WPM) Maximum Phonation Time 14.9 Maximum Phonation Time Adequate for Speech Maximum Phonation Time Comments weakened vocal quality ending with glottal [place] Jitter/Shimmer Norms: Jitter (Less than or equal to 1.040% - Frequency) Norms: Shimmer (Less than or equal to 3.810% - Amplitude) Jitter 3.09 Shimmer 7.25 Pitch Jackson Pitch Jackson Reduced Range Pitch Jackson Comments reduced range of pitch with pitch glide Muscle Tension Assessment Muscle Tension Assessment Neck,Shoulders Tongue Base Tension Tongue Base Tension w/ Voicing No Breath Support Breath Support At Rest Abdominal Breath Support Sustained Phonation Mixed Breath Support Conversation Mixed Speaks on Room Air Yes Postural Alignment Stance Balanced Shoulders Symmetrical Voice Pitch Range Norms: Women (100-300 Hz) Men (70-250 Hz) Fundamental Frequency Norms: Women (Mean: 225 Hz; Range: 155-334 Hz) Men ( Mean: 128 Hz; Range: 85-196 Hz) Voice Pitch Normal Voice Loudness Mildly Soft/Quiet Voice Phonatory-based Quality Breathy,Hoarse,Glottal [place], Pitch Breaks Fundamental Frequency 140 Hz Intensity 55-60dB Paradoxical Vocal Fold Movement No Indications Resonance Nasal Resonance Normal Oral Resonance Normal Other Observations Inadequate Breath Support Therapeutic Techniques Therapy Tactics Breath Support Findings Findings Mild-Moderate Impairment Voice/Resonance Assessment Assessment Pt presented with breathy and weak vocal quality and diminished loudness. Pt reports that by the end of the day his voice sounds squeaky . He stated he used to have a booming and strong cooney voice and loved to sing. His family and friends have difficulty hearing him at times. Pt also reported swallowing difficulty that included a sense of foods getting stuck in t kauffman area of his sternum and coughing/ choking at times. 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 Weak medial compression of the vocal folds would account for the breathy vocal quality as well as the cough/choke that the pt describes. Relative to the sense of globus, a Modified Barium Swallow Study was suggested, but the pt declined at this time. He wants to try exercises for base of tongue as well as vocal adduction exercises before going further. Prognosis Rehabilitation Potential Good - Recommendations Treatment Recommended Yes Treatment Frequency/Duration weekly for 2-3 weeks to establish exercises and then every 3 weeks for 3 mo Short Term Goals 1.Voice and swallow therapies recommended for vocal adduction and base of tongue strengthening. 2. Pt to determine if her wants to proceed with MBSS in the future. 3. Possible referral to GI to r/o esophageal dysmotility given sense of globus Patient/Caregiver Education Patient/Family Education Described results of evaluation,Patient Understanding,Patient Demonstration,Patient Needs More Info
--- NOTE | 2022-01-19 16:35 | ST.OPPOC ---
Physical, Occupational & Speech Therapy At [facility] Visit Care Team Role Provider Type Jaime Bella MD Attending Provider Physician Family Provider Primary Care Provider Referring Provider [place], [address] Speech Pathology Plan of Care Plan of Care Dates 01/19/22-04/21/[address] Bella Patient History Pt was seen for assessment of his voice and swallowing difficulty. Pt reported that over the past 2 years, he has noticed his voice becoming weaker and that he has been having difficulty with swallowing at times. Relative to his voice, the pt stated his friends and family often have difficulty hearing him when he speaks. He also noted that he used to sing in choirs and enjoyed singing, but that he is unable to sing anymore. pt also stated that recently he had a cold with sore throat. He noticed that his voice was what he would consider as normal. After his cold was gne, his normal voice also diminished. With regard to his swallowing, the pt reports a sensation of globus when he swallows foods like breads or meats in the area near his sternum. He also noted that he has a tickle in the back of his throat that will cause him to cough and sometimes choke. This cough can be set off with a small food crumble or when swallowing a small pill. Results: Pt presented with breathy and weak vocal quality and diminished loudness. Pt reports that by the end of the day his voice sounds squeeky. He stated he used to have a booming and strong cooney voice and loved to sing. His family and friends have difficulty hearing him at times. Pt also reported swallowing difficulty that included a sense of foods getting stuck in t kauffman area of his sternum and coughing/choking at times. 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 Weak medial compression of the vocal folds would account for the breathy vocal quality as well as the cough/choke that the pt describes. Relative to the sense of globus, a modified Barium Swallow Study was suggested, but the pt declined at this time. He wants to try exercises for base of tongue as well as vocal adduction exercises before going further. Recommend ST weekly for 2-3 weeks to establish exercises and then every 3 weeks for 3 mo. Goals: 1.Voice and swallow therapies recommended for vocal adduction and base of tongue strengthening. 2. Pt to determine if her wants to proceed with MBSS in the future. 3. Possible referral to GI to r/o esophageal dysmotility given sense of globus Electronically Signed by: Vesna Lugo, HAY CHOPPER 01/19/22 [id number] If you are in agreement with this Plan of Care, please return a signed and dated copy. I have reviewed this Plan of Care and certify that the skilled therapy services above are required to meet the patient?s needs. Physician Signature Date Printed Name and Credentials Clinical Instructor Signature Printed Name and Credentials
--- NOTE | 2022-01-23 16:55 | ST.OPTN ---
Visit Care Team Role Provider Type Jaime Bella MD Attending Provider Physician Family Provider Primary Care Provider Referring Provider Address: K[address]LENE [address], [place], [address] WELDER PLASMA ARC Treatment Note WELDER PLASMA ARC Treatment Note Start: 01/19/22 13:30 Freq: Status: Active Protocol: Document 01/23/22 16:48 LNK (Rec: 01/23/22 16:55 LNK [id number]) Speech Pathology Treatment Note Session Time Visit Start Time 15:30 Visit Stop Time 16:10 Total Visit Minutes 40 Visit Information Visit Number 2 Plan of Care Dates 01/19/22-04/21/21 Setting Treatment Setting Outpatient Care Visit Type Note Type Treatment Note General Information Patient History Pt was seen for assessment of his voice and swallowing difficulty. Pt reported that over the past 2 years, he has noticed his voice becoming weaker and that he has been having difficulty with swallowing at times. Relative to his voice, the pt stated his friends and family often have difficulty hearing him when he speaks. He also noted that he used to sing in choirs and enjoyed singing, but that he is unable to sing anymore. pt also stated that recently he had a cold with sore throat. He noticed that his voice was what he would consider as normal. After his cold was gone, his normal voice also diminished. With regard to his swallowing, the pt reports a sensation of globus when he swallows foods like breads or meats in the area near his sternum. He also noted that he has a tickle in the back of his throat that will cause him to cough and sometimes choke. This cough can be set off with a small food crumble or when swallowing a small pill. Subjective Identification Type Name,Date of Chief Complaint(s) Swallowing,Voice Patient Knowledge/Awareness of WELDER PLASMA ARC Role Good in Treatment Patient/Caregiver Compliance with Home Good Exercise Program Objective Short Term Goals 1.Voice and swallow therapies recommended for vocal adduction and base of tongue strengthening. 2. Pt to determine if her wants to proceed with MBSS in the future. 3. Possible referral to GI to r/o esophageal dysmotility given sense of globus Treatment Activities Reviewed therapeutic exercisers with the pt. Pt demonstrated the Misako and the vocal adduction exercises successfully. All questions were answered to the pt's satisfaction. Added the Shaker exercise to further strengthen the back of the pt' s tongue and improve swallow safety Assessment Patient Response to Treatment Good Rehab Potential Good Impairments Identified Swallow,Voice Progress Towards Goals Good Progress Reviewed with Patient Goals,Progress Being Made,Home Exercise Program Patient/Caregiver Understanding Excellent Plan Amount of Therapy Recommended 3-4 Months Frequency of Treatment Once a Week Length of Session 45 Minutes Therapeutic Contents Swallowing/Feeding,Voice Training Provided Patient/Caregiver Instruction Home Exercise Program, Questions/Concerns
--- NOTE | 2022-02-01 14:34 | ST.OPTN ---
Visit Care Team Role Provider Type Jaime Bella MD Attending Provider Physician Family Provider Primary Care Provider Referring Provider Address: [place], [address] BUSINESS DEAN Treatment Note BUSINESS DEAN Treatment Note Start: 01/19/22 13:30 Freq: Status: Active Protocol: Document 02/01/22 14:32 LNK (Rec: 02/01/22 14:34 LNK [id number]) Speech Pathology Treatment Note Session Time Visit Start Time 15:30 Visit Stop Time 16:10 Total Visit Minutes 40 Visit Information Visit Number 3 Plan of Care Dates 01/19/22-04/21/21 Setting Treatment Setting Outpatient Care Visit Type Note Type Treatment Note Next Note Type Next Note Type Treatment Note General Information Patient History Pt was seen for assessment of his voice and swallowing difficulty. Pt reported that over the past 2 years, he has noticed his voice becoming weaker and that he has been having difficulty with swallowing at times. Relative to his voice, the pt stated his friends and family often have difficulty hearing him when he speaks. He also noted that he used to sing in choirs and enjoyed singing, but that he is unable to sing anymore. pt also stated that recently he had a cold with sore throat. He noticed that his voice was what he would consider as normal. After his cold was gne, his normal voice also diminished. With regard to his swallowing, the pt reports a sensation of globus when he swallows foods like breads or meats in the area near his sternum. He also noted that he has a tickle in the back of his throat that will cause him to cough and sometimes choke. This cough can be set off with a small food crumble or when swallowing a small pill. Subjective Identification Type Name,Date of Chief Complaint(s) Swallowing,Voice Patient Knowledge/Awareness of BUSINESS DEAN Role Good in Treatment Patient/Caregiver Compliance with Home Good Exercise Program Objective Short Term Goals 1.Voice and swallow therapies recommended for vocal adduction and base of tongue strengthening. 2. Pt to determine if her wants to proceed with MBSS in the future. 3. Possible referral to GI to r/o esophageal dysmotility given sense of globus Treatment Activities Reviewed therapeutic exercisers with the pt. Pt demonstrated the misako and the vocal adduction exercises successfully. All questions were answered to the pt's satisfaction. Added the Shaker exercise to further strengthen the back of the pt' s tongue and improve swallow safety. pt reports completing all exercises daily. He stated he feels his voice has improved , but is still inconsistent. Will f/u in 3 weeks Assessment Patient Response to Treatment Good Rehab Potential Good Impairments Identified Swallow,Voice Progress Towards Goals Good Progress Reviewed with Patient Goals,Progress Being Made,Home Exercise Program Patient/Caregiver Understanding Excellent Plan Amount of Therapy Recommended 3-4 Months Frequency of Treatment Once a Week Length of Session 45 Minutes Therapeutic Contents Swallowing/Feeding,Voice Training Provided Patient/Caregiver Instruction Home Exercise Program, Questions/Concerns
--- NOTE | 2022-02-23 09:29 | ST.OPTN ---
Visit Care Team Role Provider Type Jaime Bella MD Attending Provider Physician Family Provider Primary Care Provider Referring Provider Address: Lisa K[address]LEN[address], [place], [address] COOKING TEACHER Treatment Note COOKING TEACHER Treatment Note Start: 01/19/22 13:30 Freq: Status: Active Protocol: Document 02/23/22 08:33 LNK (Rec: 02/23/22 09:29 LNK [id number]) Speech Pathology Treatment Note Session Time Visit Start Time 15:30 Visit Stop Time 16:10 Total Visit Minutes 30 Visit Information Visit Number 4 Plan of Care Dates 01/19/22-04/21/21 Setting Treatment Setting Outpatient Care Visit Type Note Type Treatment Note Next Note Type Next Note Type Treatment Note General Information Patient History Pt was seen for assessment of his voice and swallowing difficulty. Pt reported that over the past 2 years, he has noticed his voice becoming weaker and that he has been having difficulty with swallowing at times. Relative to his voice, the pt stated his friends and family often have difficulty hearing him when he speaks. He also noted that he used to sing in choirs and enjoyed singing, but that he is unable to sing anymore. pt also stated that recently he had a cold with sore throat. He noticed that his voice was what he would consider as normal. After his cold was gne, his normal voice also diminished. With regard to his swallowing, the pt reports a sensation of globus when he swallows foods like breads or meats in the area near his sternum. He also noted that he has a tickle in the back of his throat that will cause him to cough and sometimes choke. This cough can be set off with a small food crumble or when swallowing a small pill. Subjective Identification Type Name,Date of Chief Complaint(s) Swallowing,Voice Patient Knowledge/Awareness of COOKING TEACHER Role Good in Treatment Patient/Caregiver Compliance with Home Good Exercise Program Objective Short Term Goals 1.Voice and swallow therapies recommended for vocal adduction and base of tongue strengthening. 2. Pt to determine if her wants to proceed with MBSS in the future. 3. Possible referral to GI to r/o esophageal dysmotility given sense of globus Treatment Activities Reviewed therapeutic exercisers with the pt. voice is stronger today. Assessed MPT ay 21.12s (improved from 14.9s) vocal loudness measured at 69-76 dB (improved from 55- 60dB). Pitch range measured at 99-369 Hz without pitch breaks (unable to assess initially) Assessment Patient Response to Treatment Good Rehab Potential Good Impairments Identified Swallow,Voice Progress Towards Goals Good Progress Assessment of Improvement Pt's voice in improved significantly. Pt would li8ke to sing. Added loudness and pitch exercises from low-high/ soft to loud to increase flexibility with strength. pt is pleased with progress. Will follow up in 3 weeks Reviewed with Patient Goals,Progress Being Made,Home Exercise Program Patient/Caregiver Understanding Excellent Plan Amount of Therapy Recommended 3-4 Months Frequency of Treatment Once a Week Length of Session 45 Minutes Therapeutic Contents Swallowing/Feeding,Voice Training Provided Patient/Caregiver Instruction Home Exercise Program, Questions/Concerns
--- NOTE | 2022-03-09 14:09 | ST.OPTN ---
Visit Care Team Role Provider Type Jaime Bella MD Attending Provider Physician Family Provider Primary Care Provider Referring Provider Address: Lisa K[address]LEN[address], [place], [address] LANDSCAPE MANAGEMENT TECHNICIAN Treatment Note LANDSCAPE MANAGEMENT TECHNICIAN Treatment Note Start: 01/19/22 13:30 Freq: Status: Active Protocol: Document 03/09/22 13:32 LNK (Rec: 03/09/22 14:08 LNK [id number]) Speech Pathology Treatment Note Session Time Visit Start Time 15:30 Visit Stop Time 16:10 Total Visit Minutes 30 Visit Information Visit Number 5 Plan of Care Dates 01/19/22-04/21/21 Setting Treatment Setting Outpatient Care Visit Type Note Type Treatment Note Next Note Type Next Note Type Treatment Note General Information Patient History Pt was seen for assessment of his voice and swallowing difficulty. Pt reported that over the past 2 years, he has noticed his voice becoming weaker and that he has been having difficulty with swallowing at times. Relative to his voice, the pt stated his friends and family often have difficulty hearing him when he speaks. He also noted that he used to sing in choirs and enjoyed singing, but that he is unable to sing anymore. pt also stated that recently he had a cold with sore throat. He noticed that his voice was what he would consider as normal. After his cold was gone, his normal voice also diminished. With regard to his swallowing, the pt reports a sensation of globus when he swallows foods like breads or meats in the area near his sternum. He also noted that he has a tickle in the back of his throat that will cause him to cough and sometimes choke. This cough can be set off with a small food crumble or when swallowing a small pill. Subjective Identification Type Name,Date of Chief Complaint(s) Swallowing,Voice Patient Knowledge/Awareness of LANDSCAPE MANAGEMENT TECHNICIAN Role Good in Treatment Patient/Caregiver Compliance with Home Good Exercise Program Objective Short Term Goals 1.Voice and swallow therapies recommended for vocal adduction and base of tongue strengthening. 2. Pt to determine if her wants to proceed with MBSS in the future. 3. Possible referral to GI to r/o esophageal dysmotility given sense of globus Treatment Activities Reviewed therapeutic exercises with the pt. Pt reported that he has been singing in denominational lately. His voice is stronger today. Assessed Jitter (3.4%) and Shimmer (6.4 %) Assessment Patient Response to Treatment Good Rehab Potential Good Impairments Identified Swallow,Voice Progress Towards Goals Good Progress Assessment of Improvement Pt's voice improved significantly. Parameters of voice that have demonstrated improvement include Simmer, MPT, vocal loudness and pitch range measured at 99-369 Hz without pitch breaks (unable to assess initially) Will f/u in 1 month Reviewed with Patient Goals,Progress Being Made,Home Exercise Program Patient/Caregiver Understanding Excellent Plan Amount of Therapy Recommended 3-4 Months Frequency of Treatment Once a Week Length of Session 45 Minutes Therapeutic Contents Swallowing/Feeding,Voice Training Provided Patient/Caregiver Instruction Home Exercise Program, Questions/Concerns
--- NOTE | 2022-04-06 14:51 | ST.OPTN ---
Visit Care Team Role Provider Type Jaime Bella MD Attending Provider Physician Family Provider Primary Care Provider Referring Provider Address: [place], [address] OUTSIDE PLANT ENGINEER Treatment Note OUTSIDE PLANT ENGINEER Treatment Note Start: 01/19/22 13:30 Freq: Status: Active Protocol: Document 04/06/22 14:42 LNK (Rec: 04/06/22 14:50 LNK [id number]) Speech Pathology Treatment Note Session Time Visit Start Time 15:30 Visit Stop Time 16:10 Total Visit Minutes 35 Visit Information Visit Number 5 Plan of Care Dates 01/19/22-04/21/21 Setting Treatment Setting Outpatient Care Visit Type Note Type Treatment Note Next Note Type Next Note Type Treatment Note General Information Patient History Pt was seen for assessment of his voice and swallowing difficulty. Pt reported that over the past 2 years, he has noticed his voice becoming weaker and that he has been having difficulty with swallowing at times. Relative to his voice, the pt stated his friends and family often have difficulty hearing him when he speaks. He also noted that he used to sing in choirs and enjoyed singing, but that he is unable to sing anymore. pt also stated that recently he had a cold with sore throat. He noticed that his voice was what he would consider as normal. After his cold was gne, his normal voice also diminished. With regard to his swallowing, the pt reports a sensation of globus when he swallows foods like breads or meats in the area near his sternum. He also noted that he has a tickle in the back of his throat that will cause him to cough and sometimes choke. This cough can be set off with a small food crumble or when swallowing a small pill. Subjective Identification Type Name,Date of Chief Complaint(s) Swallowing,Voice Patient Knowledge/Awareness of OUTSIDE PLANT ENGINEER Role Good in Treatment Patient/Caregiver Compliance with Home Good Exercise Program Objective Short Term Goals 1.Voice and swallow therapies recommended for vocal adduction and base of tongue strengthening. 2. Pt to detemine if her wants to proceed with MBSS in the future. 3. Possible referral to GI to r/o esophageal dysmotility given sense of globus Treatment Activities Reviewed therapeutic exercises with the pt. Pt reported that he continues to sing. He reports no swallowing challenges for a long time. He also noted that at times he has a lot of phlegm that causes his voice to be croaky. we discussed increasing water intake, talking to his physician about allergies, using something to thin secretions, etc. Pt's voice remains strong with no apparent breathiness. Assessed Jitter (3.4%) and Shimmer (6.4%) and MPT. MPT was 21.4s which in WNL. Pt has maintained his improved vocal quality and his vocal exercises. Pt is ready to be discharged to his current program 3-4x/week to maintain current status. Will discharge pt at this time . Assessment Patient Response to Treatment Good Rehab Potential Good Impairments Identified Swallow,Voice Progress Towards Goals Good Progress Assessment of Improvement Pt's voice improved significantly. Parameters of voice that have demonstrated improvement include Shimmer, MPT, vocal loudness and pitch range measured at 99-369 Hz without pitch breaks (unable to assess initially) Will discharge to [facility]. Reviewed with Patient Goals,Progress Being Made,Home Exercise Program Patient/Caregiver Understanding Excellent Plan Amount of Therapy Recommended 3-4 Months Frequency of Treatment Once a Week Length of Session 45 Minutes Therapeutic Contents Swallowing/Feeding,Voice Training Provided Patient/Caregiver Instruction Home Exercise Program, Questions/Concerns
--- NOTE | 2022-04-06 14:53 | ST.OPTN ---
Visit Care Team Role Provider Type Jaime Bella MD Attending Provider Physician Family Provider Primary Care Provider Referring Provider Address: Lisa [address] [place], [place], [address] MORNING CAREGIVER Treatment Note MORNING CAREGIVER Treatment Note Start: 01/19/22 13:30 Freq: Status: Active Protocol: Document 04/06/22 14:42 LNK (Rec: 04/06/22 14:50 LNK [id number]) Speech Pathology Treatment Note Session Time Visit Start Time 15:30 Visit Stop Time 16:10 Total Visit Minutes 35 Visit Information Visit Number 5 Plan of Care Dates 01/19/22-04/21/21 Setting Treatment Setting Outpatient Care Visit Type Note Type Discharge Summary Next Note Type Next Note Type Treatment Note General Information Patient History Pt was seen for assessment of his voice and swallowing difficulty. Pt reported that over the past 2 years, he has noticed his voice becoming weaker and that he has been having difficulty with swallowing at times. Relative to his voice, the pt stated his friends and family often have difficulty hearing him when he speaks. He also noted that he used to sing in choirs and enjoyed singing, but that he is unable to sing anymore. pt also stated that recently he had a cold with sore throat. He noticed that his voice was what he would consider as normal. After his cold was gone, his normal voice also diminished. With regard to his swallowing, the pt reports a sensation of globus when he swallows foods like breads or meats in the area near his sternum. He also noted that he has a tickle in the back of his throat that will cause him to cough and sometimes choke. This cough can be set off with a small food crumble or when swallowing a small pill. Subjective Identification Type Name,Date of Chief Complaint(s) Swallowing,Voice Patient Knowledge/Awareness of MORNING CAREGIVER Role Good in Treatment Patient/Caregiver Compliance with Home Good Exercise Program Objective Short Term Goals 1.Voice and swallow therapies recommended for vocal adduction and base of tongue strengthening. 2. Pt to determine if her wants to proceed with MBSS in the future. 3. Possible referral to GI to r/o esophageal dysmotility given sense of globus Treatment Activities Reviewed therapeutic exercises with the pt. Pt reported that he continues to sing. He reports no swallowing challenges for a long time. He also noted that at times he has a lot of phlegm that causes his voice to be croaky. we discussed increasing water intake, talking to his physician about allergies, using something to thin secretions, etc. Pt's voice remains strong with no apparent breathiness. Assessed Jitter (3.4%) and Shimmer (6.4%) and MPT. MPT was 21.4s which in WNL. Pt has maintained his improved vocal quality and his vocal exercises. Pt is ready to be discharged to his current program 3-4x/week to maintain current status. Will discharge pt at this time . Assessment Patient Response to Treatment Good Rehab Potential Good Impairments Identified Swallow,Voice Progress Towards Goals Good Progress Assessment of Improvement Pt's voice improved significantly. Parameters of voice that have demonstrated improvement include Shimmer, MPT, vocal loudness and pitch range measured at 99-369 Hz without pitch breaks (unable to assess initially) Will discharge to [facility]. Reviewed with Patient Goals,Progress Being Made,Home Exercise Program Patient/Caregiver Understanding Excellent Plan Amount of Therapy Recommended No Further Therapy Frequency of Treatment No Further Therapy Provided Patient/Caregiver Instruction Home Exercise Program, Questions/Concerns Therapy Recommendations Discharge from Speech Therapy
== END 2022-04-11 12:28 | disposition home or self-care (01) ==
LOC: SP 11:30
PROVIDERS: Family Provider Family Medicine; PCP Family Medicine; Referring Provider Family Medicine; Visit Provider Family Medicine
DX: R49.9 Unspecified voice and resonance disorder (principal)
CPT/HCPCS: 92507; 92520; 92524; 92526

== ENCOUNTER → 2022-11-01 09:50 | Outpatient (CLI) | payer MEDICARE, SELFPAY | PROVIDERS: Family Provider Family Medicine; PCP Family Medicine; Referring Provider Family Medicine; Visit Provider Family Medicine | DX: R06.02 Shortness of breath (principal); Z87.09 Personal history of other diseases of the respiratory system; J98.8 Other specified respiratory disorders | CPT/HCPCS: 94060; 94726; 94729 ==

== ENCOUNTER → 2023-02-05 08:54 | Outpatient (CLI) | payer MEDICARE, SELFPAY ==
[2023-02-05 10:17] LABS: Add Manual Diff / Slide Review NO; Basophils Absolute Auto 0 /uL (0-100); Basophils Percent Auto 0.5 % (0-2); Eosinophils Absolute Auto 200 /uL (0-450); Eosinophils Percent Auto 2.9 % (2-4); Hematocrit 42.7 % (41-53); Hemoglobin 14.3 g/dL (13.5-17.5); Lymphocytes Absolute Auto 2000 /uL (1100-4500); Mean Corpuscular HGB Conc 33.4 % (30-36); Mean Corpuscular Hemoglobin 33.2 PG (26-34); Mean Corpuscular Volume 99.4 fL (80-100); Monocytes Absolute Auto 500 /uL (0-900); Monocytes Percent Auto 8.3 % (3-14); Neutrophils Absolute Auto 3300 /uL (1500-7000); Neutrophils Percent Auto 54.3 % (50-75); Platelet Count 191 X10^3/uL (150-400); Red Cell Distribution Width 14.1 % (11.6-14.8)
[2023-02-05 10:19] LABS: Alanine Aminotransferase 23 IU/L (<50); Albumin 4.1 g/dL (3.5-5.0); Albumin Globulin Ratio 1.5 (1.0-2.8); Alkaline Phosphatase 82 U/L (38-126); Aspartate Aminotransferase 34 IU/L (17-59); BUN Creatinine Ratio 24.8 (6-22); Bilirubin Total 1.1 mg/dL (0.2-1.3); Blood Urea Nitrogen 26 mg/dL (9-20); Calcium 9.3 mg/dL (8.4-10.2); Carbon Dioxide 31 mmol/L (22-32); Chloride 100 mmol/L (98-107); Cholesterol 151 mg/dL (140-199); Estimated Glomerular Filt Rate > 60 mL/min (>60); Globulin 2.8 g/dL (1.7-4.1); Glucose 90 mg/dL (80-110); HDL Cholesterol 42 mg/dL (40-60); HEMOLYSIS < 15 (0-50); Hemoglobin A1C% w Est Avg Glu 6.1 % (4.0-6.0); Potassium 4.2 mmol/L (3.4-5.1); Sodium 138 mmol/L (137-145); Total Protein 6.9 g/dL (6.3-8.2)
[2023-02-05 10:35] LABS: LDL Cholesterol Calculated 85 mg/dL (<100); Triglycerides 122 mg/dL (35-150)
[2023-02-05 11:05] LABS: Appearance Urine UA CLEAR; Bilirubin Urine UA NEGATIVE (NEGATIVE); Color Urine UA YELLOW; Glucose Urine UA NEGATIVE (Negative); Ketones Urine UA NEGATIVE (NEGATIVE); Leukocyte Esterase Urine UA NEGATIVE (NEGATIVE); Nitrite Urine UA NEGATIVE (Negative); Occult Blood Urine UA NEGATIVE (Negative); Protein Urine UA NEGATIVE (Negative); Specific Gravity Urine UA 1.015 (1.000-1.035); Urobilinogen Urine UA 0.2 E.U./dL (0.2)
[2023-02-05 11:10] LABS: Bacteria Urine None Seen; Culture Indicated Urine Cult Not Indicated; RBC Urine None Seen (0-5/HPF); Squamous Epithelial Cell Urine None Seen (0-5/HPF); WBC Urine None Seen (0-5/HPF)
== END ==
PROVIDERS: Family Provider Family Medicine; PCP Family Medicine; Referring Provider Family Medicine; Visit Provider Family Medicine
DX: Z00.00 Encounter for general adult medical examination without abnormal findings (principal); I48.0 Paroxysmal atrial fibrillation; E78.2 Mixed hyperlipidemia; G47.33 Obstructive sleep apnea (adult) (pediatric); I10 Essential (primary) hypertension; R35.89 Other polyuria
CPT/HCPCS: 36415; 80053; 80061; 81001; 83036; 85025

== ENCOUNTER → 2023-12-10 15:43 | Outpatient (CLI) | payer MEDICARE, SELFPAY ==
[2023-12-10 17:22] LABS: Hematocrit 41.5 % (41-53); Hemoglobin 13.8 g/dL (13.5-17.5); Mean Corpuscular HGB Conc 33.4 % (30-36); Mean Corpuscular Hemoglobin 33.6 PG (26-34); Mean Corpuscular Volume 100.6 fL (80-100); Platelet Count 184 X10^3/uL (150-400); Red Blood Cell Count 4.12 X10^6/uL (4.5-5.9); Red Cell Distribution Width 13.9 % (11.6-14.8); White Blood Cell Count 6.1 X10^3/uL (4.5-11.0)
[2023-12-10 17:45] LABS: Hemoglobin A1C% w Est Avg Glu 5.7 % (4.0-6.0)
[2023-12-10 18:01] LABS: Alanine Aminotransferase 25 IU/L (<50); Albumin Globulin Ratio 1.3 (1.0-2.8); Alkaline Phosphatase 91 U/L (38-126); Aspartate Aminotransferase 36 IU/L (17-59); BUN Creatinine Ratio 21.7 (6-22); Bilirubin Total 0.6 mg/dL (0.2-1.3); Blood Urea Nitrogen 25 mg/dL (9-20); Calcium 9.1 mg/dL (8.4-10.2); Carbon Dioxide 30 mmol/L (22-32); Chloride 102 mmol/L (98-107); Estimated Glomerular Filt Rate > 60 mL/min (>60); Globulin 3.1 g/dL (1.7-4.1); Glucose 97 mg/dL (80-110); HEMOLYSIS < 15 (0-50); Potassium 3.8 mmol/L (3.4-5.1); Sodium 138 mmol/L (137-145); Total Protein 7.1 g/dL (6.3-8.2)
== END ==
PROVIDERS: Family Provider Family Medicine; PCP Family Medicine; Referring Provider Family Medicine; Visit Provider Family Medicine
DX: R73.01 Impaired fasting glucose (principal); I10 Essential (primary) hypertension; I48.0 Paroxysmal atrial fibrillation; R06.09 Other forms of dyspnea
CPT/HCPCS: 36415; 80053; 83036; 84443; 85027

== ENCOUNTER → 2023-12-27 09:12 | Outpatient (CLI) | payer MEDICARE, SELFPAY ==
--- NOTE | 2023-12-27 23:19 | DI.NM.S_ITS ---
DATE OF SERVICE: 12/27/2023 PHARMACOLOGICAL PERFUSION STUDY INDICATIONS: Atrial fibrillation. RADIOPHARMACEUTICAL: 24.3 millicurie technetium 99m Myoview IV was injected at stress and 9.1 millicurie technetium-99m Myoview IV was injected at rest. CARDIAC STRESS: The patient underwent IV Lexiscan perfusion study under the supervision of an attending staff using standard IV Lexiscan as per protocol. The patient remained hemodynamically stable. Peak blood pressure 164/66 mmHg. Baseline rhythm AFib with nonspecific ST-T changes with controlled ventricular rate. During stress, no new convincing ischemic changes. The patient remained in AFib. No new significant arrhythmias. No chest pain. Had minimal dyspnea. RAW DATA: There is increased subdiaphragmatic activity. GATED STUDY: Stress LV ejection fraction 70% without any obvious wall motion abnormalities. Resting end-diastolic volume 86 mL. TID ratio 1.04, which is within normal limits. Lung/heart ratio 0.36, which is within normal limits. MYOCARDIAL PERFUSION SCAN: Stress supine, resting supine and stress prone images were compared to each other. Stress supine, resting supine images revealed small size, mildly decreased perfusion of base to mid inferior wall, which got completely resolved during stress prone images suggestive of diaphragmatic tissue attenuation artifact. Stress prone images revealed normal myocardial perfusion. CONCLUSION: This is a normal myocardial perfusion study with evidence of diaphragmatic tissue attenuation artifact, which got resolved during prone images. Baseline rhythm AFib. Preserved LV function. The patient had perfusion scan study in February 2018, at that time he had exercise perfusion study and had normal myocardial perfusion. At that time, also had evidence of diaphragmatic tissue attenuation artifact, which got resolved during prone images. Catracho Chong - YRN/kenzie/MIGEL doc#: [id number]/job#: [id number] dd: 12/27/2023 16:42:00 dt: 12/27/2023 22:03:00 DICTATING MD/COPIES TO: Jonathan Mojica MD COPIES MNE: VALDEMAR;
== END ==
PROVIDERS: Family Provider Family Medicine; PCP Family Medicine; Referring Provider Family Medicine; Visit Provider Family Medicine
DX: I48.0 Paroxysmal atrial fibrillation (principal); R06.09 Other forms of dyspnea
CPT/HCPCS: 78452; 93017; A9502; J2785

== ENCOUNTER → 2024-01-07 15:00 | Outpatient (CLI) | payer MEDICARE, SELFPAY ==
--- NOTE | 2024-01-07 15:01 | DI.ECHO.S_ITS ---
[facility] : : [address] : : [place] : : [id number] : : Phone: [phone] Echocardiogram Report + + :Name: JUAN CARLOS MI Study Date: 01/07/2024 Height: 71 in : :[facility] ReadingLocation: Weight: 195 lb : : Gender: Male BSA: 2.1 m2 : :: 1935 Age: 88 yrs BP: 134/85 mmHg: :Reason For Study: ATRIAL FIBRILLATION, DYPSNEA ON EXERTION : :Ordering Physician: ANITA, : :CRISTINE Performed By: Hugo Cuellar : :Referring: CRISTINE HOWARD : + + Interpretation Summary 1. The left ventricular contractility is normal. Estimate ejection fraction is greater than 60% with no segmental wall motion abnormalities. Mild concentric LVH. Unable to comment on diastolic function. 2. The right ventricular contractility is normal. 3. Significant biatrial enlargement. The right ventricle cavity is also mildly dilated. The left ventricular cavity is of normal size. 4. Moderate aortic valvular stenosis with mean gradient of 23 mmHg. Dimensionless index of 0.35. 5. Mild tricuspid regurgitation with estimated pulmonary systolic artery pressures of 44 to 49 mmHg. 6. No obvious intracardiac shunts. 7. No obvious intracardiac masses nor thrombi. 8. No hemodynamically significant pericardial effusion. Conclusion: Normal biventricular systolic function with moderate aortic valvular stenosis and mild tricuspid regurgitation. When compared with previous echocardiogram, aortic valvular stenosis is now present. Procedure: A two-dimensional transthoracic echocardiogram with color flow and Doppler was performed. The study quality was technically good. There is no prior echocardiogram noted for this patient. The patient was in atrial fibrillation with heart rates between 58-79 bpm during the exam. Left Ventricle: The left ventricle is normal in size. Left ventricular wall thickness is mildly increased. There is no ventricular septal defect visualized. The ejection fraction is estimated to be 65-70%. There are no focal wall motion abnormalities. Right Ventricle: The right ventricle is mildly dilated. The right ventricular systolic function is normal. Atria: The left atrium is severely dilated. The right atrium is severely dilated. There is no Doppler evidence for an atrial septal defect. Mitral Valve: The mitral valve leaflets appear mildly thickened, but open well. There is mild mitral annular calcification. There is no mitral regurgitation noted. Aortic Valve: The aortic valve is trileaflet. The aortic valve is severely calcified. There is moderately reduced leaflet mobility. There is moderate aortic stenosis. The peak aortic velocity is 3.03 m/sec. The aortic valve mean gradient is 22.8 mmHg. The calculated aortic valve area is 1.0 cm2. No aortic regurgitation is present. Tricuspid Valve: The tricuspid valve is normal in structure and function. There is mild tricuspid regurgitation. Pulmonic Valve: The pulmonic valve is normal in structure and function. There is trace pulmonic regurgitation. Great Vessels: The aortic root is mildly dilated. The dimensions of the ascending aorta are normal. The pulmonary artery is normal size. The inferior vena cava was not visualized. Pericardium/ Pleura There is no pericardial effusion. There is no pleural effusion. MMode/2D Measurements & Calculations LVIDd: 3.2 cm LVOT diam: 2.1 cm LVIDs: 1.8 cm Ao root diam: 3.7 cm FS: 43.5 % asc Aorta Diam: 3.5 cm EPSS: 0.70 cm IVSd: 1.2 cm LVPWd: 1.0 cm LV underwood. diameter/BSA (cm/m^2): 1.5 LV sys. diameter/BSA (cm/m^2): 0.86 LA A2 area: 30.0 cm2 RA long axis: 5.2 cm LA A4 area: 33.3 cm2 RA area: 26.6 cm2 LA length (vol): 6.8 cm RA vol: 115.3 ml LA vol: 123.9 ml RA : 55.3 ml/m2 LA vol index: 59.4 ml/m2 RVD1 (basal): 4.3 cm RVD2 (mid): 3.8 cm TAPSE: 2.9 cm Doppler Measurements & Calculations Ao V2 max: 302.8 cm/sec LVOT Max Jose: 88.8 cm/sec Ao V2 mean: 226.4 cm/sec LV V1 max P.2 mmHg Ao max P.7 mmHg LV V1 VTI: 23.4 cm Ao mean P.8 mmHg GABBI(I,D): 1.2 cm2 Ao V2 VTI: 66.3 cm GABBI(V,D): 1.0 cm2 sev ratio: 0.35 GABBI indexed to BSA (cm^2/m^2): 0.58 MV E max jose: 82.7 cm/sec TR max jose: 291.3 cm/sec MV A max jose: 22.9 cm/sec TR max P.9 mmHg MV E/A: 3.6 PA V2 max: 61.9 cm/sec Med Peak E' Jose: 6.3 cm/sec PA V2 mean: 48.8 cm/sec E/E' med: 13.1 PA mean P.00 mmHg Lat Peak E' Jose: 13.0 cm/sec PA pr(Accel): 24.2 mmHg E/E' lat: 6.4 E/e' average: 9.7 MV dec time: 0.22 sec SV(LVOT): 80.6 ml Reading Physician:
== END ==
PROVIDERS: Family Provider Family Medicine; PCP Family Medicine; Referring Provider Family Medicine; Visit Provider Family Medicine
DX: I48.0 Paroxysmal atrial fibrillation (principal); R06.09 Other forms of dyspnea; I08.3 Combined rheumatic disorders of mitral, aortic and tricuspid valves; I77.810 Thoracic aortic ectasia
CPT/HCPCS: 93306

== ENCOUNTER → 2024-09-03 08:57 | Outpatient (CLI) | payer MEDICARE, SELFPAY ==
[2024-09-03 10:05] LABS: Hematocrit 42.3 % (41-53); Hemoglobin 14.2 g/dL (13.5-17.5); Mean Corpuscular HGB Conc 33.7 % (30-36); Mean Corpuscular Hemoglobin 33.7 PG (26-34); Mean Corpuscular Volume 100.1 fL (80-100); Platelet Count 189 X10^3/uL (150-400)
[2024-09-03 10:30] LABS: Blood Urea Nitrogen 27 mg/dL (9-20); Calcium 9.1 mg/dL (8.4-10.2); Carbon Dioxide 29 mmol/L (22-32); Chloride 103 mmol/L (98-107); Cholesterol 140 mg/dL (140-199); Estimated Glomerular Filt Rate > 60 mL/min (>60); Glucose 95 mg/dL (70-99); HDL Cholesterol 50 mg/dL (40-60); HEMOLYSIS < 15 (0-50); Potassium 4.5 mmol/L (3.4-5.1); Sodium 139 mmol/L (137-145); Triglycerides 101 mg/dL (35-150)
== END ==
PROVIDERS: Family Provider Family Medicine; PCP Family Medicine; Referring Provider Internal Medicine Cardiovascular Disease; Visit Provider Internal Medicine Cardiovascular Disease
DX: E78.5 Hyperlipidemia, unspecified (principal); I10 Essential (primary) hypertension; Z79.01 Long term (current) use of anticoagulants
CPT/HCPCS: 36415; 80048; 80061; 85027

== ENCOUNTER → 2025-02-12 10:49 | Outpatient (CLI) | payer MEDICARE, SELFPAY ==
--- NOTE | 2025-02-12 15:11 | ST.SWALLOW ---
Visit Care Team Role Provider Type Milvia Diallo DO Attending Provider Physician Primary Care Provider Referring Provider Specialty: Family Practice Address: [address] [place] [address], [address], [place], [address] Email: [email or web address] Modified Barium Swallow Study MANAGER UROLOGY Modified Barium Swallow Study Start: 02/12/25 12:59 Freq: Status: Active Protocol: Document 02/12/25 12:59 LNK (Rec: 02/12/25 13:22 LNK Desktop) Modified Barium Swallow Study Total Time Visit Start Time 11:00 Visit Stop Time 11:45 Total Visit Minutes [address] Diallo Reason for Referral dysphagia Setting Setting Outpatient Care Patient Information Identification Type Name,Date of Patient History Pt was seen for a Modified Barium Swallow Study with c /o episodes of choking and globus sensation with pills and solid foods that began ~2-3 years ago and have worsened over the past year. Pt's baseline diet is regular solid foods (IDDSI 7) and thin liquids (IDDSI 0). Pt reported hx of PNA ~6-7 years ago, dx of VITALIY with CPAP use nightly. Pt denied hx of CVA or other neurological diagnoses, COPD, and head/neck surgery/injury. Pt endorsed acid reflux which he manages with Tums PRN. When asked, pt described a his swallow as feeling that foods (chicken, rice, dry foods, etc) and pills feel stuck in the middle of his throat (points to area around larynx). Sometimes he will cough out small pieces of foods. Occasionally, he will blow his nose and pieces of food will come out of his nose. Pt was seen for a clinical swallow evaluation on 2024. The results of that assessment indicated no overt signs/symptoms of aspiration noted. Globus sensation reported during regular texture trial. An MBSS was recommended to to confirm/rule out presence of pharyngeal dysphagia and determine if there are structural/physiological reasons for pt's s/sx Subjective Pt was seated in the flouroscopy chair with directions Observations and procedures explained for him. He indicated he understood and agreed to proceed. Patient Positioning Position View Lat-A/P Imaging Lateral View Textures Administered Trials Presented Thin Liquid via Spoon (IDDSI 0),Thin Liquid via Cup ( IDDSI 0),Mildly Thick Liquid via Spoon (IDDSI 2), Extremely Thick Liquid via Spoon (IDDSI 4),Regular ( IDDSI 7) Barium Tablet Yes The IDDSI Framework Protocol: IDDSI.1 Oral Impairment Source: The Modified Barium Swallow Impairment Profile (MBSImP??) Lip Closure Interlabial escape; no progression to anterior lip Tongue Control Cohesive bolus between tongue to palatal seal During Bolus Hold Oral Residue Residue collection on oral structures Location Tongue Initiation of Bolus head in valleculae Pharyngeal Swallow Additional Oral *OME and DKS were observed to be WNL. Impairment *Dentition with natural lower teeth plus a partial Observations denture Upper denture in place. Dentition in good hygiene *Mastication observed with rotary chew pattern. *Good bolus formation, control and AP transition. *Velopharyngeal closure was WNL Oral phase of swallow WNL Pharyngeal Impairment Source: The Modified Barium Swallow Impairment Profile (MBSImP??) Soft Palate No bolus between soft palate & pharyngeal wall Elevation Laryngeal Elevation Part.sup.move.thyroid cart/part.approx.arytenoids to epiglot.petiole Anterior Hyoid No anterior movement Excursion Epiglottic Movement Partial inversion Laryngeal Vestibular Incomplete; narrow column air/contrast in laryngeal Closure vestibule Pharyngeal Stripping Absent Wave Pharyngoesophageal Complete distention & complete duration; no obstruction Segment Opening of flow Tongue Base Narrow column of contrast/air betwn tongue base & post. Retraction pharyngeal wall Pharyngeal Residue Collection of residue within/on pharyngeal structures Location Diffuse (>3 areas) Additional *Hyoid/laryngeal elevation and epiglottic inversion Pharyngeal were judged to be adequate. Impairment *Tongue base retraction strength was reduced resulting Observations in diffuse pharyngeal pooling *Flash penetration x3 with consecutive swallows (large volume, fast rate) (WNL for pt age) No penetration with single swallows. *No tracheal aspiration observed *Pharyngeal stripping wave and cricopharyngeal opening appeared grossly adequate and did not appear to impede bolus flow. 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 Weak pharyngeal structures (i.e., base of tongue and posterior pharyngeal wall) resulted in diffuse pharyngeal pooling, which may increase aspiration risk. Esophageal structures appeared to be weakened with no collapse of the esophagus following a bolus transition to the stomach. A diverticulum was noted in the posterior wall of the esophagus at the thyrocricoid level. This diverticulum was large enough to trap food particles and/or medications. The pt reports coughing up pieces of foods, a sensation of globus mid throat, and has ejected food out blowing his nose. GI referral is recommnded or further evaluation Rehabilitation Good Potential Patient Appropriate Yes: Base of tongue exercises for Therapy Recommendations Diet Comments No diet change is recommended Treatment Plan Therapy Outpatient Speech Therapy Recommendations Recommended GI Consult Referrals
== END ==
LOC: RAD 10:50
PROVIDERS: PCP Family Medicine; Referring Provider Family Medicine; Visit Provider Family Medicine
DX: R13.10 Dysphagia, unspecified (principal)
CPT/HCPCS: 74230; 92611